=== PATIENT | male | born 1960 | race Caucasian/White ===

== ENCOUNTER → 2016-08-09 | Outpatient (CLI) | payer OTHER, MEDICAID, SELFPAY | PROVIDERS: Visit Provider Nurse Practitioner Psychiatric/Mental Health | DX: F31.60 Bipolar disorder, current episode mixed, unspecified (principal); F43.10 Post-traumatic stress disorder, unspecified; R41.89 Other symptoms and signs involving cognitive functions and awareness | CPT/HCPCS: 90836; 99214 ==

== ENCOUNTER → 2016-08-10 | Outpatient (CLI) | payer MEDICAID, OTHER, SELFPAY | PROVIDERS: Family Provider Nurse Practitioner Psychiatric/Mental Health; PCP Nurse Practitioner Psychiatric/Mental Health; Visit Provider Nurse Practitioner Psychiatric/Mental Health | DX: Z51.81 Encounter for therapeutic drug level monitoring (principal) | CPT/HCPCS: 36415; 80053; 80178; 84439; 84443; 84481; 85025 ==

== ENCOUNTER → 2016-09-20 | Outpatient (CLI) | payer OTHER, MEDICAID, SELFPAY | PROVIDERS: Visit Provider Nurse Practitioner Psychiatric/Mental Health | DX: F31.60 Bipolar disorder, current episode mixed, unspecified (principal); F43.10 Post-traumatic stress disorder, unspecified; R41.89 Other symptoms and signs involving cognitive functions and awareness | CPT/HCPCS: 90838; 99214 ==

== ENCOUNTER → 2016-10-04 | Outpatient (CLI) | payer MEDICAID, OTHER, SELFPAY | PROVIDERS: Family Provider Nurse Practitioner Psychiatric/Mental Health; PCP Nurse Practitioner Psychiatric/Mental Health; Visit Provider Nurse Practitioner Psychiatric/Mental Health | DX: F31.60 Bipolar disorder, current episode mixed, unspecified (principal); F43.10 Post-traumatic stress disorder, unspecified; R41.89 Other symptoms and signs involving cognitive functions and awareness | CPT/HCPCS: 90838; 99214 ==

== ENCOUNTER → 2016-10-22 | Outpatient (CLI) | payer MEDICAID, OTHER, SELFPAY | PROVIDERS: Family Provider Nurse Practitioner Psychiatric/Mental Health; PCP Nurse Practitioner Psychiatric/Mental Health; Visit Provider Nurse Practitioner Psychiatric/Mental Health | DX: F31.60 Bipolar disorder, current episode mixed, unspecified (principal); F43.10 Post-traumatic stress disorder, unspecified; R41.89 Other symptoms and signs involving cognitive functions and awareness | CPT/HCPCS: 90838; 99214 ==

== ENCOUNTER → 2016-12-03 | Outpatient (CLI) | payer MEDICAID, OTHER, SELFPAY | PROVIDERS: Family Provider Nurse Practitioner Psychiatric/Mental Health; PCP Nurse Practitioner Psychiatric/Mental Health; Visit Provider Nurse Practitioner Psychiatric/Mental Health | DX: F31.60 Bipolar disorder, current episode mixed, unspecified (principal); F43.10 Post-traumatic stress disorder, unspecified; R41.89 Other symptoms and signs involving cognitive functions and awareness | CPT/HCPCS: 90838; 99214 ==

== ENCOUNTER → 2017-01-13 | Outpatient (CLI) | payer MEDICAID, OTHER, SELFPAY | PROVIDERS: Family Provider Nurse Practitioner Psychiatric/Mental Health; PCP Nurse Practitioner Psychiatric/Mental Health; Visit Provider Nurse Practitioner Psychiatric/Mental Health | DX: F31.60 Bipolar disorder, current episode mixed, unspecified (principal); F43.10 Post-traumatic stress disorder, unspecified; R41.89 Other symptoms and signs involving cognitive functions and awareness | CPT/HCPCS: 90838; 99214 ==

== ENCOUNTER 2019-04-15 09:58 | Emergency (ER) | payer MEDICARE, SELFPAY ==
[2019-04-15 10:15] VITALS: BP 133/81; PULSE 67; RESP 16; TEMP 36.8; O2SAT 99; BMI 55.3
[2019-04-15 11:16] VITALS: BP 133/90; PULSE 62; RESP 17; O2SAT 99
--- NOTE | 2019-04-15 11:36 | ED.GIBLEED ---
HPI - GI Bleed General Chief complaint: GI Bleed Stated complaint: blood in stool/low abd pain today Time Seen by Provider: 04/15/19 10:31 Source: patient Mode of arrival: Ambulatory Limitations: no limitations History of Present Illness HPI Narrative: Patient is a 58-year-old male who presents with rectal bleeding. He states he had bowel movement this morning he flushed and then fell he immediately had ago again at that time he looked and it was bright red blood. He has not had any further episodes of bleeding he has no abdominal pain no nausea vomiting no dizziness or lightheadedness. Onset (ago): hour(s) Pain Consistency: now resolved Related Data Home Medications Medication Instructions Recorded Confirmed amlodipine [Norvasc] 10 mg PO DAILY #0 07/01/17 04/15/19 multivitamin 1 tab PO DAILY 03/04/18 02/24/19 levothyroxine 50 mcg PO DAILY 04/15/19 04/15/19 losartan 100 mg PO DAILY 04/15/19 04/15/19 omeprazole 20 mg PO DAILY 04/15/19 04/15/19 ropinirole 0.5 mg PO DAILY 04/15/19 04/15/19 Previous Rx's Medication Instructions Recorded methylphenidate HCl 36 mg 36 mg PO QAM #30 tab 02/24/19 tablet,extended release 24 hr lithium carbonate 300 mg capsule 900 mg PO BEDTIME #180 cap 03/22/19 alprazolam 0.5 mg tablet 0.5 mg PO BIDP PRN #30 tab 04/15/19 Allergies Allergy/AdvReac Type Severity Reaction Status Date / Time atenolol [From TENORMIN] AdvReac Unknown psychosis Unverified 12/23/18 09:52 Review of Systems Review of Systems Narrative: GENERAL: Denies chills, fatigue, malaise, fever, sweats, travel HEENT: Denies sinus pain, ear pain, sore throat, difficulty swallowing, neck pain RESPIRATORY: Denies dyspnea, cough, wheezing, hemoptysis, sputum. CARDIOVASCULAR: Denies chest pain, palpitations, orthopnea, edema GASTROINTESTINAL: See HPI : Denies dysuria, frequency, incontinence, hematuria, urinary retention, flank pain. MUSCULOSKELETAL: Denies weakness, joint pain, or bony pain SKIN: No rash, no erythema, no pruritus NEUROLOGIC: Denies weakness, dizziness, headache, numbness, change in speech, confusion PSYCHIATRIC: No concerning psychosocial issues. 12 point review of systems is negative except for those stated above and HPI [facility] Medical History ADHD, hyperactive-impulsive type (Acute) Bipolar 1 disorder, mixed (Acute) Cognitive impairment (Acute) Gastroesophageal reflux disease with hiatal hernia (Acute) Medication side effects (Acute) Nightmares associated with chronic post-traumatic stress disorder (Acute) PTSD (post-traumatic stress disorder) (Acute) Social History Smoking Status: Former smoker Social History Smoking Status: Former smoker Exam Initial Vital Signs Initial Vital Signs: Vital Signs Temperature 98.3 F 04/15/19 10:15 Pulse Rate 67 04/15/19 10:15 Respiratory Rate 16 04/15/19 10:15 Blood Pressure 133/81 04/15/19 10:15 Pulse Oximetry 99 04/15/19 10:15 GENERAL: Well-appearing, well-nourished and in no acute distress. HEENT: Head atraumatic,EOMI, pupils reactive, face symmetric, moist mucous membranes CARDIOVASCULAR: Regular rate and rhythm without murmurs, rubs or gallops. RESPIRATORY: Breath sounds equal bilaterally, no wheezes rales or rhonchi. ABDOMEN: Soft, nontender. Normoactive bowel sounds all 4 quadrants. No guarding or rebound. RECTAL: Trace Hemoccult-positive no gross blood no hemorrhoids nontender EXTREMITIES: Normal range of motion, no clubbing or edema. Neurovascularly intact NEUROLOGICAL: Alert and oriented x4.Normal gait and speech. Cranial nerves II through XII grossly intact. SKIN: Warm, dry, no laceration, no petechiae, no rashes or lesions. Course Orders Ordered: ED Orders 04/15/19 11:45 Complete Blood Count AUTO DIFF Stat Comprehensive Metabolic Panel Stat Lactate (Lactic Acid) Stat Lipase Stat Partial Thromboplastin Time Stat Prothrombin Time INR Stat Type and Screen Stat Vital Signs Vital signs: Vital Signs - 8 hr 04/15/19 11:16 04/15/19 12:46 04/15/19 12:56 Temperature 97.4 F L Pulse Rate 62 69 62 Respiratory Rate 17 17 16 Blood Pressure 141/97 H Blood Pressure [Left Arm] 133/90 141/97 H Pulse Oximetry 99 100 100 MDM - GI Bleed Lab Data Attestation: I reviewed the patient's lab results. Result diagrams: 04/15/19 11:45 04/15/19 11:45 Labs: Lab Results 04/15/19 04/15/19 04/15/19 Range/Units 11:45 11:45 11:45 WBC 15.7 H (4.5-11.0) X10^3/uL RBC 4.82 (4.5-5.9) X10^6/uL Hgb 14.6 (13.5-17.5) g/dL Hct 43.2 (41-53) % MCV 89.5 (80-100) fL MCH 30.3 (26-34) PG MCHC 33.8 (30-36) % RDW 13.3 (11.6-14.8) % Plt Count 242 (150-400) X10^3/uL Neut % (Auto) 47.2 L (50-75) % Lymph % (Auto) 47.7 H (25-40) % [place] % (Auto) 4.2 (3-14) % Eos % (Auto) 0.4 L (2-4) % Baso % (Auto) 0.5 (0-2) % Neut # (Auto) 7400 H (3239-8225) /uL Lymph # (Auto) 7500 H (9799-4454) /uL [place] # (Auto) 700 (0-900) /uL Eos # (Auto) 100 (0-450) /uL Baso # (Auto) 100 (0-100) /uL PT 10.8 (10.1-12.7) SECONDS INR 0.9 (0.9-1.3) APTT 33 (26.4-36.2) SECONDS Sodium 141 (137-145) mmol/L Potassium 5.1 (3.4-5.1) mmol/L Chloride 106 (98-107) mmol/L Carbon Dioxide 26 (22-32) mmol/L BUN 15 (9-20) mg/dL Creatinine 0.90 (0.66-1.25) mg/dL Estimated GFR > 60.0 (>60) mL/min BUN/Creatinine Ratio 16.7 (6-22) Glucose 95 (70-100) mg/dL Lactate (0.7-2.1) mmol/L Calcium 9.2 (8.4-10.2) mg/dL Total Bilirubin 0.5 (0.2-1.3) mg/dL AST 39 (17-59) IU/L ALT 47 (21-72) IU/L Alkaline Phosphatase 86 (38-126) U/L Total Protein 7.6 (6.3-8.2) g/dL Albumin 4.4 (3.5-5.0) g/dL Globulin 3.2 (1.7-4.1) g/dL Albumin/Globulin Ratio 1.4 (1.0-2.8) Lipase 110 (23-300) U/L Blood Type Antibody Screen 04/15/19 04/15/19 Range/Units 11:45 11:45 WBC (4.5-11.0) X10^3/uL RBC (4.5-5.9) X10^6/uL Hgb (13.5-17.5) g/dL Hct (41-53) % MCV (80-100) fL MCH (26-34) PG MCHC (30-36) % RDW (11.6-14.8) % Plt Count (150-400) X10^3/uL Neut % (Auto) (50-75) % Lymph % (Auto) (25-40) % [place] % (Auto) (3-14) % Eos % (Auto) (2-4) % Baso % (Auto) (0-2) % Neut # (Auto) (9583-1149) /uL Lymph # (Auto) (6928-5741) /uL [place] # (Auto) (0-900) /uL Eos # (Auto) (0-450) /uL Baso # (Auto) (0-100) /uL PT (10.1-12.7) SECONDS INR (0.9-1.3) APTT (26.4-36.2) SECONDS Sodium (137-145) mmol/L Potassium (3.4-5.1) mmol/L Chloride (98-107) mmol/L Carbon Dioxide (22-32) mmol/L BUN (9-20) mg/dL Creatinine (0.66-1.25) mg/dL Estimated GFR (>60) mL/min BUN/Creatinine Ratio (6-22) Glucose (70-100) mg/dL Lactate 1.3 (0.7-2.1) mmol/L Calcium (8.4-10.2) mg/dL Total Bilirubin (0.2-1.3) mg/dL AST (17-59) IU/L ALT (21-72) IU/L Alkaline Phosphatase (38-126) U/L Total Protein (6.3-8.2) g/dL Albumin (3.5-5.0) g/dL Globulin (1.7-4.1) g/dL Albumin/Globulin Ratio (1.0-2.8) Lipase (23-300) U/L Blood Type O Positive Antibody Screen Negative MDM Narrative Medical decision making narrative: Patient is hemodynamically stable hemoglobin hematocrit stable. No further episodes of GI bleeding. Recommend outpatient colonoscopy at this time. I discussed all findings with the patient and spouse, Education has been performed regarding treatment plan, diagnosis, warning signs and symptoms and all concerns have been addressed. Verbally agree with and understood all of the above. Discharge Plan Departure Patient Disposition: Home Clinical Impression: Acute GI bleeding Discharge Date/Time: 04/15/19 12:56 Instructions: Gastrointestinal Bleeding Activity Restrictions/Additional Instructions: *You have been diagnosed with GI bleed *What to do: Continue to monitor for further or more persistent rectal bleeding. You do need a colonoscopy. *Continue to take medications as directed *Follow up with your primary care provider in 2-3 days *Return to ER if you should have more frequent episodes of bleeding, dizziness lightheadedness abdominal pain or any new, worsening or concerning symptoms Prescriptions: No Action multivitamin tablet 1 tab PO DAILY RF: 0 methylphenidate HCl 36 mg tablet extended release 24hr 36 mg PO QAM Qty: 30 RF: 0 amlodipine [Norvasc] 10 MG tablet 10 mg PO DAILY Qty: 0 RF: 0 lithium carbonate 300 mg capsule 900 mg PO BEDTIME Qty: 180 RF: 1 alprazolam [Xanax] 0.5 mg tablet 0.5 mg PO BIDP PRN (Reason: anxiety) Qty: 30 RF: 0 levothyroxine 50 mcg tablet 50 mcg PO DAILY RF: 0 ropinirole 0.5 mg tablet 0.5 mg PO DAILY RF: 0 omeprazole 20 mg capsule,delayed release(DR/EC) 20 mg PO DAILY RF: 0 losartan 100 mg tablet 100 mg PO DAILY RF: 0 Referrals: Lina Hutton DO [Primary Care Provider] -
[2019-04-15 11:58] LABS: Add Manual Diff / Slide Review NO; Basophils Absolute Auto 100 /uL (0-100); Basophils Percent Auto 0.5 % (0-2); Eosinophils Absolute Auto 100 /uL (0-450); Eosinophils Percent Auto 0.4 % (2-4); Hematocrit 43.2 % (41-53); Hemoglobin 14.6 g/dL (13.5-17.5); Lymphocytes Absolute Auto 7500 /uL (1100-4500); Lymphocytes Percent Auto 47.7 % (25-40); Mean Corpuscular HGB Conc 33.8 % (30-36); Mean Corpuscular Hemoglobin 30.3 PG (26-34); Mean Corpuscular Volume 89.5 fL (80-100); Monocytes Absolute Auto 700 /uL (0-900); Monocytes Percent Auto 4.2 % (3-14); Neutrophils Absolute Auto 7400 /uL (1500-7000); Neutrophils Percent Auto 47.2 % (50-75); Platelet Count 242 X10^3/uL (150-400); Red Blood Cell Count 4.82 X10^6/uL (4.5-5.9); Red Cell Distribution Width 13.3 % (11.6-14.8); White Blood Cell Count 15.7 X10^3/uL (4.5-11.0)
[2019-04-15 12:05] LABS: INR 0.9 (0.9-1.3); Prothrombin Time 10.8 SECONDS (10.1-12.7)
[2019-04-15 12:08] LABS: PTT Partial Thromboplastin Tim 33 SECONDS (26.4-36.2)
[2019-04-15 12:09] LABS: Alanine Aminotransferase 47 IU/L (21-72); Albumin 4.4 g/dL (3.5-5.0); Albumin Globulin Ratio 1.4 (1.0-2.8); Alkaline Phosphatase 86 U/L (38-126); Aspartate Aminotransferase 39 IU/L (17-59); BUN Creatinine Ratio 16.7 (6-22); Bilirubin Total 0.5 mg/dL (0.2-1.3); Blood Urea Nitrogen 15 mg/dL (9-20); Calcium 9.2 mg/dL (8.4-10.2); Carbon Dioxide 26 mmol/L (22-32); Chloride 106 mmol/L (98-107); Estimated Glomerular Filt Rate > 60.0 mL/min (>60); Globulin 3.2 g/dL (1.7-4.1); Glucose 95 mg/dL (70-100); HEMOLYSIS < 15 (0-50); Lactate (Lactic Acid) 1.3 mmol/L (0.7-2.1); Lipase 110 U/L (23-300); Potassium 5.1 mmol/L (3.4-5.1); Sodium 141 mmol/L (137-145); Total Protein 7.6 g/dL (6.3-8.2)
[2019-04-15 12:46] VITALS: BP 141/97; PULSE 69; RESP 17; O2SAT 100
--- NOTE | 2019-04-15 12:51 | PC.NURSE ---
Moderate amount of bright red blood filling toilet bowl with stool this morning. Mild abdominal pain.
[2019-04-15 12:56] VITALS: BP 141/97; PULSE 62; RESP 16; TEMP 36.3; O2SAT 100
== END 2019-04-15 12:56 | disposition home or self-care (01) ==
PROVIDERS: Emergency Provider Emergency Medicine; Family Provider Nurse Practitioner Psychiatric/Mental Health; PCP Family Medicine
DX: K92.2 Gastrointestinal hemorrhage, unspecified (principal)
CPT/HCPCS: 36415; 80053; 83605; 83690; 85025; 85610; 85730; 86850; 86900; 86901; 99282; 99283

== ENCOUNTER 2019-04-30 08:47 | Day surgery (SDC) | payer MEDICARE, SELFPAY | END 2019-04-30 08:50 | disposition home or self-care (01) | PROVIDERS: Family Provider Nurse Practitioner Psychiatric/Mental Health; PCP Family Medicine; Visit Provider Surgery ==

== ENCOUNTER 2020-03-05 23:31 | Emergency (ER) | payer MEDICARE, SELFPAY ==
--- NOTE | 2020-03-05 23:48 | DI.CT.S_ITS ---
PROCEDURE: CT KIDNEY URETER BLADDER (KUB) INDICATIONS: right groin pain with radiation to back TECHNIQUE: Noncontrast 5 mm thick sections acquired from the diaphragms to the symphysis. 5 mm thick coronal and sagittal reformats were then performed. For radiation dose reduction, the following was used: automated exposure control, adjustment of mA and/or kV according to patient size. COMPARISON: [facility], CT, CT CHEST ABD PEL W CON, 03/06/2020, 1:46. FINDINGS: Image quality: Excellent. Lung bases: Lung bases are clear. Heart size is normal. There is a small hiatal hernia. Urinary system: Both kidneys are normal in size. No kidney stones. No hydronephrosis or perinephric fat stranding. Both ureters appear non-dilated throughout their expected courses. Bladder wall thickness is normal; no calcified bladder stones. Prostate is enlarged. Irregular bladder base at midline suggesting mass. Other solid organs: Liver is normal in size. Gallbladder is semi contracted and contains a calcified stone. Pancreas is normal in contours. Spleen is normal in size. No adrenal nodules. Peritoneum and bowel: Unenhanced bowel loops demonstrate normal wall thickness and caliber. There are scattered colonic diverticula. No CT findings to suggest acute diverticulitis. No free fluid or air. Nodes and vessels: There is a 1.9 cm lymph node just below the aortic bifurcation. There is bilateral iliac lymphadenopathy. For example, there is a 1.7 cm right common iliac lymph node. A 2.6 x 3.0 cm lymph node is seen at the right iliac bifurcation. A 2.8 x 2.9 cm right external iliac lymph node is identified. On the left side, there is a 1.5 x 2.3 cm left external iliac lymph node. Enlarged internal iliac lymph nodes are seen bilaterally, measuring 1.8 cm on the right side and 1.4 x 2.3 cm on the left. There is stranding along the pelvic sidewall adjacent to the lymph nodes. Aorta and inferior vena cava are normal in caliber. Abdominal wall: No ventral hernias. Pelvis: No free pelvic fluid. No inguinal hernias or adenopathy. Bones: No suspicious bony lesions. No vertebral body compression fractures. IMPRESSION: 1. There is extensive pelvic lymphadenopathy. The main diagnostic considerations include metastatic disease versus lymphoma. Infectious or inflammatory etiologies are also in the differential diagnosis. 2. Irregular bladder base at midline. Differential diagnosis include uroepithelial neoplasm versus enlarged prostate protruding into the urinary bladder. Recommend urology consultation. 3. Enlarged prostate. 4. Small hiatal hernia. 5. No urinary stones or hydronephrosis. 6. Normal appendix. 7. Diverticulosis without acute diverticulitis. Dictated by: Christy Coyne M.D. on 03/06/2020 at 8:01 Approved by: Christy Coyne M.D. on 03/06/2020 at 8:13
[2020-03-05 23:55] VITALS: BP 138/100; PULSE 117; RESP 16; TEMP 37.7; O2SAT 99; BMI 24.4
[2020-03-05 23:58] LABS: Add Manual Diff / Slide Review NO; Basophils Absolute Auto 100 /uL (0-100); Basophils Percent Auto 0.5 % (0-2); Eosinophils Absolute Auto 100 /uL (0-450); Eosinophils Percent Auto 0.6 % (2-4); Hematocrit 43.6 % (41-53); Hemoglobin 14.6 g/dL (13.5-17.5); Lymphocytes Absolute Auto 7900 /uL (1100-4500); Lymphocytes Percent Auto 38.5 % (25-40); Mean Corpuscular HGB Conc 33.5 % (30-36); Mean Corpuscular Hemoglobin 29.5 PG (26-34); Mean Corpuscular Volume 87.9 fL (80-100); Monocytes Absolute Auto 1400 /uL (0-900); Monocytes Percent Auto 6.7 % (3-14); Neutrophils Absolute Auto 11100 /uL (1500-7000); Neutrophils Percent Auto 53.7 % (50-75); Platelet Count 250 X10^3/uL (150-400); Red Blood Cell Count 4.96 X10^6/uL (4.5-5.9); Red Cell Distribution Width 13.6 % (11.6-14.8); White Blood Cell Count 20.7 X10^3/uL (4.5-11.0)
[2020-03-06] VITALS (12 sets, daily range): BP systolic 101–134; BP diastolic 61–79; PULSE 77–107; RESP 16–27; O2SAT 94–100
[2020-03-06 00:11] LABS: BUN Creatinine Ratio 18.5 (6-22); Blood Urea Nitrogen 17 mg/dL (9-20); Calcium 9.4 mg/dL (8.4-10.2); Carbon Dioxide 22 mmol/L (22-32); Chloride 105 mmol/L (98-107); Estimated Glomerular Filt Rate > 60.0 mL/min (>60); Glucose 135 mg/dL (80-110); HEMOLYSIS 15 (0-50); Potassium 4.2 mmol/L (3.4-5.1); Sodium 136 mmol/L (137-145)
[2020-03-06] MEDS: KETOROLAC 60 MG/2 ML VIAL 15 MG IV (00:24)
[2020-03-06] MEDS: SODIUM CHLORIDE 0.9% 1,000 ML 1000 ML IV (00:24)
--- NOTE | 2020-03-06 01:22 | ED_ITS ---
HPI - Male Genitourinary General Chief complaint: Urogenital-Male Stated complaint: right testicle pain Time Seen by Provider: 03/05/20 23:31 Source: patient Mode of arrival: Ambulatory Limitations: no limitations History of Present Illness HPI Narrative: 59M non smoker with history of HTN presents with the chief co mplaint of 24 hours of persistent, severe RLQ pain with radiation into his testicle. He states it started suddenly just after intercourse. He has worsening pain with urination. He denies fever or chills or other systemic findings such as dizziness, N/V. He denies obvious provocation or palliation and admits to some radiation of pain around his back. He denies any history of the same. He denies penile discharge. Related Data Home Medications Medication Instructions Recorded Confirmed amlodipine [Norvasc] 10 mg PO DAILY #0 07/01/17 09/01/19 multivitamin 1 tab PO DAILY 03/04/18 09/01/19 levothyroxine 50 mcg PO DAILY 04/15/19 09/01/19 losartan 100 mg PO DAILY 04/15/19 09/01/19 omeprazole 20 mg PO DAILY 04/15/19 09/01/19 Previous Rx's Medication Instructions Recorded lithium carbonate 300 mg capsule 900 mg PO BEDTIME #180 cap 06/30/19 alprazolam 0.5 mg tablet 0.5 mg PO BID PRN 30 Days #30 tab 09/20/19 ketorolac 10 mg PO Q6H PRN #14 tab 03/06/20 Allergies Allergy/AdvReac Type Severity Reaction Status Date / Time atenolol [From TENORMIN] AdvReac Unknown psychosis Verified 03/06/20 00:00 aerosol sprays Allergy Intermediate states Uncoded 03/06/20 00:00 that his lungs close up and he can't breathe perfume Allergy Intermediate states Uncoded 03/06/20 00:00 that his lungs close up and he can't breathe puppy breath Allergy Intermediate states Uncoded 03/06/20 00:00 that his lungs close up and he can't breathe Review of Systems Constitutional Constitutional: Denies chills, Denies fatigue, Denies fever(s), Denies frequent falls, Denies lethargy and Denies weakness Eyes Eyes: Denies change in vision, Denies eye discharge, Denies irritation and Denies loss of vision ENT Ears, Nose, Mouth, and Throat: Denies change in voice, Denies dizziness, Denies neck pain, Denies sore throat and Denies throat swelling Cardiovascular Cardiovascular: Denies chest pain, Denies irregular heart rhythm, Denies lightheadedness, Denies palpitations, Denies dyspnea, Denies dyspnea on exertion and Denies orthopnea Respiratory Respiratory: Denies cough, Denies dyspnea, Denies dyspnea on exertion and Denies wheezing Gastrointestinal Gastrointestinal: Reports abdominal pain, Denies change in bowel habits, Denies diarrhea, Denies nausea and Denies vomiting Musculoskeletal Musculoskeletal: Denies neck pain and Denies numbness Integumentary/Breasts Skin/Breast: Denies pruritus, Denies erythema, Denies rash and Denies wounds Neurologic Neurologic: Denies behavioral changes, Denies confusion, Denies dizziness, Denies frequent falls, Denies loss of vision, Denies numbness and Denies weakness Psychiatric Psychiatric: Denies anxiety, Denies behavioral changes, Denies confusion, Denies depression, Denies homicidal ideation and Denies suicidal ideation Endocrine Endocrine: Denies fatigue, Denies flushing and Denies palpitations Hematologic/Lymphatic Hematologic/Lymphatic: Denies easy bruising Allergic/Immunologic Allergic/Immunologic: Denies urticaria, Denies throat swelling and Denies wheezing Patient History Medical History Acute GI bleeding (Inactive) ADHD, hyperactive-impulsive type (Acute) Bipolar 1 disorder, mixed (Acute) Cognitive impairment (Acute) Gastroesophageal reflux disease with hiatal hernia (Acute) HTN (hypertension) (Acute) Internal hemorrhoids (Acute) Medication side effects (Acute) Nightmares associated with chronic post-traumatic stress disorder (Acute) PTSD (post-traumatic stress disorder) (Acute) Family History Father Hypertension Social History marital status: household members: spouse and children occupational status: disabled Smoking Status: Former smoker alcohol intake: never substance use type: does not use Smoking Status: Former smoker alcohol intake frequency: 0-2 drinks per day Substance Use Type: does not use Exam Narrative Exam Narrative: GENERAL: [59] year old patient appears stated age. Well- nourished, well-developed patient, in mild distress. HEAD: Atraumatic. Normocephalic. EYES: Pupils equal round and reactive. Extraocular motions intact. No scleral icterus. No injection or drainage. ENT: Nose without bleeding, purulent drainage. Throat without erythema, tonsillar hypertrophy or exudate. Airway patent. NECK: Trachea midline. Non tender CARDIOVASCULAR: Regular rate and rhythm without murmurs, gallops, or rubs. RESPIRATORY: Clear to auscultation. Breath sounds equal bilaterally. No wheezes, rales, or rhonchi. GASTROINTESTINAL: Abdomen soft, tender in RLQ, nondistended. : Examined while standing. NO evidence of hernia. No pain in testicles, no swelling, redness, or other abnormality EXTREMITIES: No edema or joint tenderness. BACK: Nontender without deformity or crepitance. No flank tenderness. NEURO: AOx3. SKIN: No rash or erythema of visible areas Initial Vital Signs Initial Vital Signs: Vital Signs Temperature 99.8 F H 03/05/20 23:55 Pulse Rate 117 H 03/05/20 23:55 Respiratory Rate 16 03/05/20 23:55 Blood Pressure 138/100 H 03/05/20 23:55 Pulse Oximetry 99 03/05/20 23:55 Course Orders Ordered: ED Orders 03/05/20 23:48 CT kidney ureter bladder (KUB) Stat 03/05/20 23:50 Basic Metabolic Panel Stat Complete Blood Count AUTO DIFF Stat 03/06/20 00:00 Prostate Specific Antigen Stat 03/06/20 01:27 CT chest abd pel w con Stat Discontinued Medications Hydrocodone Bitart/Acetaminophen (Vicodin 5/325 Prepack) 1 bottle MISC SEEINSTR ONE Stop: 03/06/20 03:47 Last Admin: 03/06/20 04:08 Dose: 1 bottle Documented by: SYLWIA Sodium Chloride (Normal Saline 0.9%) 1,000 mls @ 1,000 mls/hr IV BOLUS ONE Stop: 03/06/20 00:46 Last Infusion: 03/06/20 02:23 Dose: 0 mls/hr Documented by: Admin: 03/06/20 00:24 Dose: 1,000 mls/hr Documented by: ELOINA Ketorolac Tromethamine (Toradol) 15 mg IV NOW ONE Stop: 03/05/20 23:48 Last Admin: 03/06/20 00:24 Dose: 15 mg Documented by: ELOINA Vital Signs Vital signs: Vital Signs - 8 hr 03/05/20 23:55 03/06/20 00:13 03/06/20 00:58 Temperature 99.8 F H Pulse Rate 117 H 87 Pulse Rate [Orthostatic Lying] 101 H Pulse Rate [Orthostatic Sitting] 107 H Pulse Rate [Orthostatic Standing] 87 Respiratory Rate 16 27 H Blood Pressure 138/100 H Blood Pressure [Orthostatic Lying] 119/69 Blood Pressure [Orthostatic Sitting] 131/76 Blood Pressure [Orthostatic Standing] 101/64 Pulse Oximetry 99 95 03/06/20 01:00 03/06/20 01:30 03/06/20 02:15 Temperature Pulse Rate 89 81 98 H Pulse Rate [Orthostatic Lying] Pulse Rate [Orthostatic Sitting] Pulse Rate [Orthostatic Standing] Respiratory Rate 23 22 Blood Pressure 131/76 134/79 Blood Pressure [Orthostatic Lying] Blood Pressure [Orthostatic Sitting] Blood Pressure [Orthostatic Standing] Pulse Oximetry 96 94 97 03/06/20 02:30 03/06/20 02:45 03/06/20 03:00 Temperature Pulse Rate 88 85 81 Pulse Rate [Orthostatic Lying] Pulse Rate [Orthostatic Sitting] Pulse Rate [Orthostatic Standing] Respiratory Rate Blood Pressure 119/66 111/65 112/61 Blood Pressure [Orthostatic Lying] Blood Pressure [Orthostatic Sitting] Blood Pressure [Orthostatic Standing] Pulse Oximetry 95 96 96 03/06/20 03:15 03/06/20 03:30 03/06/20 03:45 Temperature Pulse Rate 81 77 85 Pulse Rate [Orthostatic Lying] Pulse Rate [Orthostatic Sitting] Pulse Rate [Orthostatic Standing] Respiratory Rate Blood Pressure 120/63 105/65 127/75 Blood Pressure [Orthostatic Lying] Blood Pressure [Orthostatic Sitting] Blood Pressure [Orthostatic Standing] Pulse Oximetry 96 95 97 03/06/20 04:00 Temperature Pulse Rate 78 Pulse Rate [Orthostatic Lying] Pulse Rate [Orthostatic Sitting] Pulse Rate [Orthostatic Standing] Respiratory Rate Blood Pressure 123/66 Blood Pressure [Orthostatic Lying] Blood Pressure [Orthostatic Sitting] Blood Pressure [Orthostatic Standing] Pulse Oximetry 96 MDM - Male Genitourinary Lab Data Result diagrams: 03/05/20 23:50 03/05/20 23:50 Labs: Lab Results 03/05/20 03/05/20 03/06/20 Range/Units 23:50 23:50 00:00 WBC 20.7 H (4.5-11.0) X10^3/uL RBC 4.96 (4.5-5.9) X10^6/uL Hgb 14.6 (13.5-17.5) g/dL Hct 43.6 (41-53) % MCV 87.9 (80-100) fL MCH 29.5 (26-34) PG MCHC 33.5 (30-36) % RDW 13.6 (11.6-14.8) % Plt Count 250 (150-400) X10^3/uL Neut % (Auto) 53.7 (50-75) % Lymph % (Auto) 38.5 (25-40) % [place] % (Auto) 6.7 (3-14) % Eos % (Auto) 0.6 L (2-4) % Baso % (Auto) 0.5 (0-2) % Neut # (Auto) 92793 H (8051-9568) /uL Lymph # (Auto) 7900 H (9783-9414) /uL [place] # (Auto) 1400 H (0-900) /uL Eos # (Auto) 100 (0-450) /uL Baso # (Auto) 100 (0-100) /uL Sodium 136 L (137-145) mmol/L Potassium 4.2 (3.4-5.1) mmol/L Chloride 105 (98-107) mmol/L Carbon Dioxide 22 (22-32) mmol/L BUN 17 (9-20) mg/dL Creatinine 0.92 (0.66-1.25) mg/dL Estimated GFR > 60.0 (>60) mL/min BUN/Creatinine Ratio 18.5 (6-22) Glucose 135 H (80-110) mg/dL Calcium 9.4 (8.4-10.2) mg/dL Prostate Specific Ag 91.2 H (0.10-4.00) ng/mL Urine Dip Bedside Urine Glucose Negative Bedside Urine Bilirubin - Negative Bedside Urine Ketone - Negative Urine Specific Brandt 1.010 Bedside Urine Occult Blood - Negative Bedside Urine pH 7.0 Bedside Urine Protein - Negative Bedside Urine Urobilinogen - Negative Bedside Urine Nitrite - Negative Bedside Urine Leukocytes - Negative Esterase Imaging Data CT scan - chest: Radiologist's Impression: 1 cm left adrenal nodule and terminate by CT numbers on postcontrast study but suggestive of adenoma on prior noncontrast study. Slight thickening of the right adrenal nodule. Lobulated mildly enlarged prostate with mildly distended urinary bladder possibly related to bladder outlet obstruction. Mild diverticulosis. Lower bilateral retroperitoneal stranding with lymphadenopathy including distal jacoby aortic and common external and internal iliac chains, finding suggestive of malignant process. Discharge Plan Departure Patient Disposition: Home Clinical Impression: Acute pelvic pain, Lymphadenopathy, abdominal Discharge Date/Time: 03/06/20 04:21 Instructions: DI for Pelvic Pain Activity Restrictions/Additional Instructions: *You have been diagnosed with [pelvic pain, likely due to enlarged lymph nodes which may be metastatic (cancerous). Close follow up is very important] *What to do: *Take medications as directed: Prescription was electronically sent to [facility] in [place] at your request. *Establishing care with a primary physician will be very important as will contacting medical oncology and urology. All of the contacts have been included. *Return to ER if you should have any new, worsening or concerning symptoms, such as [ ] Prescriptions: New ketorolac 10 mg tablet 10 mg PO Q6H PRN (Reason: pain) Qty: 14 RF: 0 No Action multivitamin tablet 1 tab PO DAILY RF: 0 lithium carbonate 300 mg capsule 900 mg PO BEDTIME Qty: 180 RF: 1 amlodipine [Norvasc] 10 MG tablet 10 mg PO DAILY Qty: 0 RF: 0 alprazolam [Xanax] 0.5 mg tablet 0.5 mg PO BID PRN (Reason: anxiety) 30 Days Qty: 30 RF: 1 levothyroxine 50 mcg tablet 50 mcg PO DAILY RF: 0 omeprazole 20 mg capsule,delayed release(DR/EC) 20 mg PO DAILY RF: 0 losartan 100 mg tablet 100 mg PO DAILY RF: 0 Referrals: [facility] [Outside] Ayesha Ríos MD [Physician] - Lina Hutton DO [Primary Care Provider] - Miguel Dalton MD [Physician] -
--- NOTE | 2020-03-06 01:27 | DI.CT.S_ITS ---
PROCEDURE: CT CHEST ABD PEL W CON INDICATIONS: severe pain, leukocytosis, lymphadenopathy TECHNIQUE: After the administration of oral and intravenous contrast, 5 mm thick sections acquired from the lung apices to the symphysis. 5 mm coronal and sagittal reformats were performed, with additional 7 mm coronal MIP reformats through the lungs. For radiation dose reduction, the following was used: automated exposure control, adjustment of mA and/or kV according to patient size. COMPARISON: None. FINDINGS: Image quality: Excellent. CHEST: Lungs and pleura: No acute airspace opacities. No pleural effusions or pneumothorax. Central and peripheral airways appear patent and normal in caliber. Mediastinum: Heart size is normal. No pericardial effusion. No mediastinal or hilar adenopathy by size criteria. Thoracic aorta and central pulmonary arteries are normal in size. Esophagus is normal in caliber. Very small hiatal hernia. Chest wall: No axillary or supraclavicular adenopathy by size criteria. Thyroid gland is normal . ABDOMEN: Solid organs: Liver is normal in size and enhancement. Gallbladder contains a punctate calcification dependently layering near the neck. No suspicious wall thickening . Biliary system is non dilated. Pancreas enhances normally. Spleen is normal in size and enhancement. There is a small ill-defined adrenal nodule measuring about 1.1 x 1.5 cm on the lateral limb of the left gland. Kidneys demonstrate normal size and enhancement, without hydronephrosis. Peritoneum and bowel: Bowel loops demonstrate normal wall thickness and caliber. No free fluid or air. Normal appendix. Nodes and vessels: No retroperitoneal or mesenteric adenopathy by size criteria. There is a mildly prominent left lower periaortic lymph node (2/87). Aorta and inferior vena cava are normal in size. Miscellaneous: No ventral hernias. PELVIS: Genitourinary: Enhancing irregular mass along the posterior wall of the urinary bladder measuring roughly 1.4 x 2.1 cm. There is no ureteral obstruction. The prostate gland is mildly enlarged measuring 5.1 by 3.7 by 4.3 cm. Miscellaneous: There is inflammatory fascial thickening and bulky lymphadenopathy beginning at the aortic bifurcation and extending caudal along both common, internal, and external iliac chains. 1 of the largest lymph nodes is in the right external iliac chain and measures about 2.6 cm in short axis. Small, 8 mm lymph node is present in the right perirectal fat. No inguinal adenopathy. Bones: No suspicious bony lesions. No vertebral body compression fractures. IMPRESSION: 1. Iliac chain adenopathy bilaterally and mild overlying inflammatory changes of the lower retroperitoneum. Findings suggestive of metastatic disease versus lymphoma. 2. Sessile, enhancing bladder mass along the posterior wall. This may be the source of adenopathy. Urology consult is recommended. 3. Cholelithiasis. 4. Small left adrenal nodule, most likely an adenoma based on the noncontrast scan performed earlier the same day. Metastatic disease is felt less likely. 5. No evidence of metastatic disease in the chest. 6. Findings discussed with Dr. Rivera in the emergency room at 08:43. Dictated by: Gem Baker M.D. on 03/06/2020 at 8:29 Approved by: Gem Baker M.D. on 03/06/2020 at 8:46
[2020-03-06] MEDS: HYDROCODONE/ACET 5/325 PREPACK 1 BOTTLE MISC (04:08)
[2020-03-06 05:33] LABS: Prostate Specific Antigen 91.2 ng/mL (0.10-4.00)
--- NOTE | 2020-03-06 17:27 | PC.NURSE ---
pt called, insurance doesn't cover toradol, pt request something else. dr mina ordered meloxicam 7.5mg 1-2 tabs daily. #30 tabs total.
== END 2020-03-06 04:21 | disposition home or self-care (01) ==
PROVIDERS: Emergency Provider Emergency Medicine; Family Provider Nurse Practitioner Psychiatric/Mental Health; PCP Family Medicine
DX: R10.2 Pelvic and perineal pain (principal); R59.0 Localized enlarged lymph nodes; N40.0 Benign prostatic hyperplasia without lower urinary tract symptoms; K57.90 Diverticulosis of intestine, part unspecified, without perforation or abscess without bleeding; R10.31 Right lower quadrant pain
CPT/HCPCS: 36415; 71260; 74176; 74177; 80048; 81003; 84153; 85025; 93005; 96361; 96374; 99284; 99285; J1885; Q9967

== ENCOUNTER → 2020-03-25 13:34 | Outpatient (CLI) | payer MEDICARE, SELFPAY ==
[2020-03-27 11:45] LABS: COVID19 Sendout Not Detected (Not Detect)
== END ==
PROVIDERS: Family Provider Nurse Practitioner Psychiatric/Mental Health; PCP Family Medicine; Visit Provider Nurse Practitioner
DX: Z11.59 Encounter for screening for other viral diseases (principal)
CPT/HCPCS: 87635

== ENCOUNTER 2020-03-28 08:51 | Day surgery (SDC) | payer MEDICARE, SELFPAY ==
[2020-03-28] VITALS (9 sets, daily range): BP systolic 88–113; BP diastolic 55–73; PULSE 55–93; RESP 9–19; TEMP 36.1–36.7; O2SAT 89–99; BMI 24.4
--- NOTE | 2020-03-28 | PATH_ITS ---
[facility] Accession Number: [id number] . 01 Material submitted: . colon - POLYP AT 40CM . 01 Clinical history: . SDC . 02 Diagnosis: Colon, Polyp at 40 cm, Biopsy: Inflammatory polyp. Negative for dysplasia and malignancy. MRV 03/30/2020 1021 Local . 02 Electronically signed: . Leslie Montoya MD, Pathologist NPI- [id number] . 01 Gross description: . The specimen is received in formalin, labeled polyp at 40 cm and consists of a 0.5 x 0.4 x 0.3 cm rush-pink polyp, which is entirely submitted in cassette A1. ([id number]) /[facility] 03/29/2020 1801 Local . 02 Pathologist provided ICD-10: K63.5 . 02 CPT . 530134 Performed at: 01 [facility] [address] [facility], [place], [place] [id number] MD Zafar Wetzel MD Phone: [phone] Performed at: 02 [facility] [address] [place], [place] [id number] MD Leslie Montoya MD Phone: [phone]
[2020-03-28] MEDS: LACTATED RINGERS 1,000 ML 200 ML IV ×2 (09:47→13:00)
--- NOTE | 2020-03-28 11:11 | PM.PREOP ---
Pre-operative Note COVID-19 COVID-19 status: Negative Result date/Date tested (Pos, Neg/Pending): 03/25/20 Interval Note History & Physical reviewed/Exam performed by Physician: Yes Changes to H&P: No ASA Class (for procedural sedation): II
[2020-03-28] MEDS: fentaNYL 250 MCG/5 ML INJ IV (11:21)
[2020-03-28] MEDS: MIDAZOLAM 5 MG/5 ML VIAL IV (11:21)
--- NOTE | 2020-03-28 11:52 | PM.OP.ENDO ---
Operative Date/Time/Diagnoses Date of procedure: 03/28/20 Time of procedure: 11:52 Pre-op diagnosis: Screening exam Post-op diagnosis: same (Sigmoid diverticulosis. Multiple polyps.) Procedure & Clinicians Study performed: Colonoscopy with hot snare polypectomy Same procedure as scheduled: Yes Indications: Screening exam. This is his 1st colonoscopy. Surgeon: Richie Patel Procedure Notes SCOAP/Timeout: Perform Procedure in detail: The patient was placed in the left lateral decubitus position and underwent IV sedation directed by the surgeon consisting of fentanyl and Versed. Digital exam was remarkable for a very large hard prostate highly suggestive of cancer. The scope was inserted and advanced through the rectum into the sigmoid, descending, transverse, and ascending colon. There was a polyp at about 40 cm which was snared and completely removed. Patient was noted to have numerous sigmoid diverticuli. The cecum was reached identified by the ileocecal valve and the appendiceal opening. The terminal ileum was cannulated. The terminal ileum was normal in appearance. The scope was gradually brought out. One other small Polyp was found and cauterized. The scope ultimately was retroflexed in the rectum. The appearance was normal. The scope was removed and the patient tolerated the procedure well. The prep was very good. Scope withdrawal time: 10min(11 total) Sedation minutes: 28 Findings: diverticulosis, polyp (Forty cm from the anal verge) and other findings (Probable prostate cancer) Specimen(s): other (Polyp) Complications: none Post-procedure Recommendations: Colonscopy in 5 years Follow up: as needed Disposition: PACU
[2020-03-28] MEDS: ATROPINE 1 MG/10 ML SYRINGE IV (11:53)
== END 2020-03-28 13:45 | disposition home or self-care (01) ==
PROVIDERS: Family Provider Nurse Practitioner Psychiatric/Mental Health; PCP Family Medicine; Referring Provider Specialist; Visit Provider Specialist
PROC: 0DJD8ZZ Inspection of Lower Intestinal Tract, Via Natural or Artificial Opening Endoscopic (ICD-10-PCS; CPT 45378; principal; 2020-03-28 10:00)
DX: Z12.11 Encounter for screening for malignant neoplasm of colon (principal); I10 Essential (primary) hypertension; F31.9 Bipolar disorder, unspecified; K21.9 Gastro-esophageal reflux disease without esophagitis; K57.30 Diverticulosis of large intestine without perforation or abscess without bleeding; K51.40 Inflammatory polyps of colon without complications
CPT/HCPCS: 45385; 84153; 99152; 99153; J0461; J2250; J3010

== ENCOUNTER → 2020-05-04 09:50 | Outpatient (CLI) | payer MEDICARE, SELFPAY ==
--- NOTE | 2020-05-04 09:55 | DI.NM.S_ITS ---
PROCEDURE: NM BONE SCAN WHOLE BODY RADIOPHARMACEUTICAL: 20.1 mCi Tc-99m MDP IV. INDICATIONS: prostate cancer TECHNIQUE: Delayed whole-body scintigrams were obtained approximately 3-4 hours after intravenous injection of radiotracer. Anterior and posterior views were acquired from vertex to feet. Additional left and right oblique views of the thoracic cage and pelvis were obtained. COMPARISON: [facility], CR, SPINE LUMB 2 OR 3VW, 02/24/2015, 9:50. [facility], CT, CT CHEST ABD PEL W CON, 03/06/2020, 1:46. FINDINGS: No lesions are identified in skull, sternum, clavicles, scapulae, ribs, bony pelvis, and visualized shafts of the long bones. There is low level increased uptake in cervical, thoracic and lumbar spine with distribution indistinguishable from degenerative disc and facet disease; early metastasis to spine could be obscured by degenerative changes. There are foci of increased periarticular activity involving shoulders, sternoclavicular joints and hips, compatible with degenerative/arthritic changes. IMPRESSION: No scintigraphic findings to suggest osseous metastasis. Dictated by: Christy Coyne M.D. on 05/04/2020 at 14:11 Approved by: Christy Coyne M.D. on 05/04/2020 at 14:19
== END ==
PROVIDERS: Family Provider Nurse Practitioner Psychiatric/Mental Health; PCP Family Medicine; Referring Provider Specialist; Visit Provider Specialist
DX: C61 Malignant neoplasm of prostate (principal); Z79.899 Other long term (current) drug therapy
CPT/HCPCS: 78306; 96372; 96402; A9503; J0897; J9155

== ENCOUNTER → 2020-06-09 12:08 | Outpatient (CLI) | payer MEDICARE, SELFPAY | PROVIDERS: Family Provider Nurse Practitioner Psychiatric/Mental Health; PCP Family Medicine; Referring Provider Specialist; Visit Provider Specialist | DX: M85.852 Other specified disorders of bone density and structure, left thigh (principal); C61 Malignant neoplasm of prostate | CPT/HCPCS: 77081 ==

== ENCOUNTER 2020-07-08 13:57 | Emergency (ER) | payer MEDICARE, SELFPAY ==
[2020-07-08] VITALS (7 sets, daily range): BP systolic 139–179; BP diastolic 75–92; PULSE 70–85; RESP 16–18; TEMP 36.7; O2SAT 96–99; BMI 24.4
--- NOTE | 2020-07-08 14:17 | DI.CT.S_ITS ---
PROCEDURE: CT HEAD/BRAIN WO CON INDICATIONS: numbness tingling TECHNIQUE: Noncontrast 4.5 mm thick angled axial sections acquired from the foramen magnum to the vertex, with coronal and sagittal reformats. For radiation dose reduction, the following was used: automated exposure control, adjustment of mA and/or kV according to patient size. COMPARISON: None. FINDINGS: Image quality: Excellent. CSF spaces: Basal cisterns are patent. No extra-axial fluid collections. The ventricles are symmetric in size and shape. Brain: No intracranial bleeds or masses. There is cerebral volume loss for age, with resultant ventricular and sulcal prominence. There are periventricular and deep white matter chronic small vessel ischemic changes. There is intracranial internal carotid artery atherosclerosis. Skull and face: Calvarium and visualized facial bones appear intact, without suspicious lesions. Sinuses: Visualized sinuses and mastoids are clear. IMPRESSION: No CT evidence of acute intracranial process. Dictated by: Gem Baker M.D. on 07/08/2020 at 15:57 Approved by: Gem Baker M.D. on 07/08/2020 at 15:58
[2020-07-08] MEDS: SODIUM CHLORIDE 0.9% 1,000 ML 150 ML IV (14:43)
--- NOTE | 2020-07-08 14:45 | ED_ITS ---
HPI - Neuro Symptoms/Deficit General Chief Complaint: Neuro Symptoms/Deficit Stated Complaint: general numbness Time Seen by Provider: 07/08/20 14:00 Source: patient Mode of arrival: Ambulatory Limitations: no limitations History of Present Illness HPI Narrative: 59-year-old male former smoker with history of hypertension, prostate cancer (on chemo) with memory problems presents with a chief complaint of 2 weeks of vague symptoms including episodes of on and off total body numbness. He states he had some numbness on his face over the past 2 days as well. He has no focal neurologic findings such as blurred vision, trouble speech or unilateral numbness, weakness or tingling. He denies any pain. He denies any fever or chills. He has no chest pain or shortness of breath. He states that about 2 weeks ago he started a new chemotherapy for his prostate cancer. He denies any exposure to COVID-19 is otherwise well and free of complaint. He is currently not having any symptoms Onset (ago): day(s) Severity: moderate Quality: numb and tingling Relieving factors: none Exacerbating factors: none Context: other On Anticoagulants: No Associated symptoms: denies other symptoms Treatments Prior to Arrival: none Related Data Home Medications Medication Instructions Recorded Confirmed amlodipine [Norvasc] 10 mg PO DAILY #0 07/01/17 06/27/20 multivitamin 1 tab PO DAILY 03/04/18 06/27/20 levothyroxine 25 mcg PO DAILY 04/15/19 06/27/20 omeprazole 20 mg PO DAILY 04/15/19 06/27/20 lithium carbonate 600 mg PO BEDTIME 03/28/20 06/27/20 aspirin 81 mg PO DAILY 05/02/20 06/27/20 losartan 100 mg DAILY 06/07/20 06/27/20 Previous Rx's Medication Instructions Recorded abiraterone 1,000 mg PO DAILY #120 tab 06/07/20 abiraterone 1,000 mg PO QAM 30 Days #60 tab 06/07/20 tamsulosin [Flomax] 0.4 mg PO BEDTIME #30 cap 06/07/20 prednisone 5 mg PO BID #60 tab 06/13/20 alprazolam 0.5 mg tablet 0.5 mg PO BID PRN 30 Days #30 tab 06/27/20 oxycodone 5 mg PO Q6H PRN #28 tab 06/29/20 Allergies Allergy/AdvReac Type Severity Reaction Status Date / Time atenolol [From TENORMIN] AdvReac Unknown psychosis Verified 06/27/20 14:59 aerosol sprays Allergy Intermediate states Uncoded 06/27/20 14:59 that his lungs close up and he can't breathe perfume Allergy Intermediate states Uncoded 06/27/20 14:59 that his lungs close up and he can't breathe puppy breath Allergy Intermediate states Uncoded 06/27/20 14:59 that his lungs close up and he can't breathe Review of Systems Constitutional Constitutional: Denies chills, Denies fatigue, Denies fever(s), Denies frequent falls, Denies lethargy and Denies weakness Eyes Eyes: Denies change in vision, Denies eye discharge, Denies irritation and Denies loss of vision ENT Ears, Nose, Mouth, and Throat: Denies change in voice, Denies dizziness, Denies neck pain, Denies sore throat and Denies throat swelling Cardiovascular Cardiovascular: Denies chest pain, Denies irregular heart rhythm, Denies lightheadedness, Denies palpitations, Denies dyspnea, Denies dyspnea on exertion and Denies orthopnea Respiratory Respiratory: Denies cough, Denies dyspnea, Denies dyspnea on exertion and Denies wheezing Gastrointestinal Gastrointestinal: Denies abdominal pain, Denies change in bowel habits, Denies diarrhea, Denies nausea and Denies vomiting Musculoskeletal Musculoskeletal: Denies neck pain, Reports numbness and Reports tingling Integumentary/Breasts Skin/Breast: Denies pruritus, Denies erythema, Denies rash and Denies wounds Neurologic Neurologic: Denies behavioral changes, Denies confusion, Denies dizziness, Denie s frequent falls, Denies loss of vision, Reports numbness, Reports tingling and Denies weakness Psychiatric Psychiatric: Denies anxiety, Denies behavioral changes, Denies confusion, Denies depression, Denies homicidal ideation and Denies suicidal ideation Endocrine Endocrine: Denies fatigue, Denies flushing and Denies palpitations Hematologic/Lymphatic Hematologic/Lymphatic: Denies easy bruising Allergic/Immunologic Allergic/Immunologic: Denies urticaria, Denies throat swelling and Denies wheezing Patient History Medical History Acute GI bleeding ADHD, hyperactive-impulsive type Arthritis Asthma Bipolar 1 disorder, mixed Cognitive impairment Elevated PSA Elevated PSA Family history of prostate cancer Gastroesophageal reflux disease with hiatal hernia HTN (hypertension) Internal hemorrhoids Lower urinary tract symptoms (LUTS) Medication side effects Nightmares associated with chronic post-traumatic stress disorder Osteopenia Prostate cancer PTSD (post-traumatic stress disorder) Family History Father Hypertension Brother Stroke Social History marital status: household members: spouse and children occupational status: disabled Smoking Status: Former smoker alcohol intake: never substance use type: does not use Smoking Status: Former smoker alcohol intake frequency: holidays/special occasions only Substance Use Type: marijuana Exam Narrative Exam Narrative: GENERAL: [59] year old patient appears stated age. Well- nourished, well-developed patient, in mild distress. HEAD: Atraumatic. Normocephalic. EYES: Pupils equal round and reactive. Extraocular motions intact. No scleral icterus. No injection or drainage. ENT: Nose without bleeding, purulent drainage. Throat without erythema, tonsillar hypertrophy or exudate. Airway patent. NECK: Trachea midline. Non tender CARDIOVASCULAR: Regular rate and rhythm without murmurs, gallops, or rubs. RESPIRATORY: Clear to auscultation. Breath sounds equal bilaterally. No wheezes, rales, or rhonchi. GASTROINTESTINAL: Abdomen soft, non-tender, nondistended. EXTREMITIES: No edema or joint tenderness. BACK: Nontender without deformity or crepitance. No flank tenderness. NEURO: AOx3. SKIN: No rash or erythema of visible areas NIH Stroke Scale 1a. LOC: Patient is alert and keenly responsive (0) 1b. LOC Questions: Patient answers both LOC questions accurately (0) 1c. LOC Commands: Patient performs both tasks correctly (0) 2. Best Gaze: Normal (0) 3. Visual: No visual loss (0) 4. Facial palsy: Normal symmetrical movements (0) 5. Motor arm: No drift (0) 6. Motor leg: No drift (0) 7. Limb ataxia: Absent (0) 8. Sensory: Normal (0) 9. Best language: No aphasia; normal (0) 10. Dysarthria: Normal (0) 11. Extinction and inattention: No abnormality (0) NIHSS: 0 Initial Vital Signs Initial Vital Signs: Vital Signs Temperature 98.0 F 07/08/20 14:07 Pulse Rate 85 07/08/20 14:07 Respiratory Rate 16 07/08/20 14:07 Blood Pressure 179/92 H 07/08/20 14:07 Pulse Oximetry 99 07/08/20 14:07 Course Orders Ordered: ED Orders 07/08/20 14:17 CT head/brain wo con Stat EKG-12 Lead Stat 07/08/20 14:55 Basic Metabolic Panel Stat Complete Blood Count AUTO DIFF Stat Partial Thromboplastin Time Stat Prothrombin Time INR Stat Discontinued Medications Sodium Chloride (Normal Saline 0.9%) 1,000 mls @ 150 mls/hr IV CONT JOSH Last Infusion: 07/08/20 17:00 Dose: 150 mls/hr Documented by: Admin: 07/08/20 14:43 Dose: 150 mls/hr Documented by: GREG Vital Signs Vital signs: Vital Signs - 8 hr 07/08/20 14:07 07/08/20 15:01 07/08/20 15:03 Temperature 98.0 F Pulse Rate 85 77 76 Respiratory Rate 16 18 Blood Pressure 179/92 H 156/85 H Pulse Oximetry 99 96 98 07/08/20 15:30 07/08/20 16:00 07/08/20 16:33 Temperature Pulse Rate 71 70 75 Respiratory Rate 17 18 Blood Pressure 139/79 143/76 H Pulse Oximetry 97 98 99 07/08/20 16:34 Temperature Pulse Rate 72 Respiratory Rate Blood Pressure 145/75 H Pulse Oximetry 99 MDM - Neuro Symptoms/Deficit Lab Data Result diagrams: 07/08/20 14:55 07/08/20 14:55 Labs: Lab Results 07/08/20 07/08/20 07/08/20 Range/Units 14:55 14:55 14:55 WBC 21.7 H (4.5-11.0) X10^3/uL RBC 4.68 (4.5-5.9) X10^6/uL Hgb 13.9 (13.5-17.5) g/dL Hct 41.8 (41-53) % MCV 89.2 (80-100) fL MCH 29.6 (26-34) PG MCHC 33.2 (30-36) % RDW 14.6 (11.6-14.8) % Plt Count 319 (150-400) X10^3/uL Neut % (Auto) 34.0 L (50-75) % Lymph % (Auto) 61.0 H (25-40) % [place] % (Auto) 3.9 (3-14) % Eos % (Auto) 0.8 L (2-4) % Baso % (Auto) 0.3 (0-2) % Neut # (Auto) 7400 H (8037-0755) /uL Lymph # (Auto) 91500 H (1293-1719) /uL [place] # (Auto) 800 (0-900) /uL Eos # (Auto) 200 (0-450) /uL Baso # (Auto) 100 (0-100) /uL Reactive Lymphocytes 1+ H Smudge Cells 2+ H WBC Morphology Comment 2+ atypical lymphs RBC Morphology Normal morphology PT 10.7 (10.1-12.7) SECONDS INR 0.9 (0.9-1.3) APTT 31 (26.4-36.2) SECONDS Sodium 136 L (137-145) mmol/L Potassium 3.7 (3.4-5.1) mmol/L Chloride 104 (98-107) mmol/L Carbon Dioxide 26 (22-32) mmol/L BUN 19 (9-20) mg/dL Creatinine 0.94 (0.66-1.25) mg/dL Estimated GFR > 60.0 (>60) mL/min BUN/Creatinine Ratio 20.2 (6-22) Glucose 104 (80-110) mg/dL Calcium 9.7 (8.4-10.2) mg/dL [facility] Narrative Medical decision making narrative: Patient had episodes of very nondescript and widespread tingling that seems to move around his body and includes his face, arms, chest and legs. He has no focal neurologic findings at any point such as blurred vision, weakness, trouble speech or other. He has no symptoms here in the department. His symptoms started soon after initiating the treatment of a chemotherapeutic agent. CT demonstrates no stroke, no electrolyte abnormalities noted. He does have a leukocytosis but no signs of infection, no fever or chills, and frequently his had elevated white blood cells in the past. He is under the care of Hematology and Oncology and plans to follow-up with them early in the week. I did discuss this on the phone with his as he admitted the is forgetful. Both have been given return precautions, had their questions answered to their apparent satisfaction and have an understanding and agreement with the diagnosis and plan Discharge Plan Departure Patient Disposition: Home Clinical Impression: Facial paresthesia, Paresthesias Instructions: DI for Numbness/Tingling Activity Restrictions/Additional Instructions: *You have been diagnosed with [resolved, generalized paresthesias] *What to do: *Take medications as directed *Follow up with your primary oncologist in 2-3 days, call for an appointment. Let them know you were seen in the Emergency Department and that we ask that you be seen in follow up, it would seem reasonable to discuss whether not your chemotherapeutic agent is likely to contribute to your symptoms *Return to ER if you should have any new, worsening or concerning symptoms Prescriptions: No Action multivitamin tablet 1 tab PO DAILY RF: 0 alprazolam [Xanax] 0.5 mg tablet 0.5 mg PO BID PRN (Reason: anxiety) 30 Days Qty: 30 RF: 1 amlodipine [Norvasc] 10 MG tablet 10 mg PO DAILY Qty: 0 RF: 0 lithium carbonate 300 mg capsule 600 mg PO BEDTIME RF: 0 aspirin 81 mg Tablet,Chewable 81 mg PO DAILY RF: 0 losartan 100 mg Tablet 100 mg DAILY RF: 0 abiraterone 500 mg Tablet 1,000 mg PO QAM 30 Days Qty: 60 RF: 6 tamsulosin [Flomax] 0.4 mg Capsule 0.4 mg PO BEDTIME Qty: 30 RF: 2 abiraterone 250 mg Tablet 1,000 mg PO DAILY Qty: 120 RF: 6 prednisone 5 mg Tablet 5 mg PO BID Qty: 60 RF: 6 oxycodone 5 mg Tablet 5 mg PO Q6H PRN (Reason: cancer pain) Qty: 28 RF: 0 levothyroxine 50 mcg tablet 25 mcg PO DAILY RF: 0 omeprazole 20 mg capsule,delayed release(DR/EC) 20 mg PO DAILY RF: 0 Referrals: Lina Hutton DO [Primary Care Provider] -
[2020-07-08 15:35] LABS: INR 0.9 (0.9-1.3); Prothrombin Time 10.7 SECONDS (10.1-12.7)
[2020-07-08 15:38] LABS: PTT Partial Thromboplastin Tim 31 SECONDS (26.4-36.2)
[2020-07-08 15:39] LABS: BUN Creatinine Ratio 20.2 (6-22); Blood Urea Nitrogen 19 mg/dL (9-20); Calcium 9.7 mg/dL (8.4-10.2); Carbon Dioxide 26 mmol/L (22-32); Chloride 104 mmol/L (98-107); Estimated Glomerular Filt Rate > 60.0 mL/min (>60); Glucose 104 mg/dL (80-110); HEMOLYSIS < 15 (0-50); Potassium 3.7 mmol/L (3.4-5.1); Sodium 136 mmol/L (137-145)
[2020-07-08 15:45] LABS: Basophils Absolute Auto 100 /uL (0-100); Basophils Percent Auto 0.3 % (0-2); Eosinophils Absolute Auto 200 /uL (0-450); Eosinophils Percent Auto 0.8 % (2-4); Hematocrit 41.8 % (41-53); Hemoglobin 13.9 g/dL (13.5-17.5); Lymphocytes Absolute Auto 13200 /uL (1100-4500); Mean Corpuscular HGB Conc 33.2 % (30-36); Mean Corpuscular Hemoglobin 29.6 PG (26-34); Mean Corpuscular Volume 89.2 fL (80-100); Monocytes Absolute Auto 800 /uL (0-900); Monocytes Percent Auto 3.9 % (3-14); Neutrophils Absolute Auto 7400 /uL (1500-7000); Platelet Count 319 X10^3/uL (150-400); Red Blood Cell Count 4.68 X10^6/uL (4.5-5.9); Red Cell Distribution Width 14.6 % (11.6-14.8); White Blood Cell Count 21.7 X10^3/uL (4.5-11.0)
[2020-07-08 15:46] LABS: Add Manual Diff / Slide Review SLIDE REVIEW
[2020-07-08 15:47] LABS: RBC Morphology Normal Morphology; Smudge Cells 2+
[2020-07-08 15:48] LABS: Reactive Lymphocytes 1+; WBC Morphology Comment 2+ Atypical Lymphs
== END 2020-07-08 17:05 | disposition home or self-care (01) ==
PROVIDERS: Emergency Provider Emergency Medicine; Family Provider Nurse Practitioner Psychiatric/Mental Health; PCP Family Medicine
DX: R20.2 Paresthesia of skin (principal); I10 Essential (primary) hypertension; C61 Malignant neoplasm of prostate; Z79.82 Long term (current) use of aspirin; F31.9 Bipolar disorder, unspecified
CPT/HCPCS: 36415; 70450; 80048; 85025; 85610; 85730; 93005; 96360; 96361; 99283; 99284

== ENCOUNTER → 2020-08-02 12:36 | Outpatient (CLI) | payer MEDICARE, SELFPAY ==
[2020-08-02 13:23] LABS: Alanine Aminotransferase 61 IU/L (<50); Albumin 4.3 g/dL (3.5-5.0); Albumin Globulin Ratio 1.3 (1.0-2.8); Alkaline Phosphatase 107 U/L (38-126); Aspartate Aminotransferase 56 IU/L (17-59); BUN Creatinine Ratio 17.5 (6-22); Bilirubin Total 0.3 mg/dL (0.2-1.3); Blood Urea Nitrogen 14 mg/dL (9-20); Carbon Dioxide 29 mmol/L (22-32); Chloride 107 mmol/L (98-107); Estimated Glomerular Filt Rate > 60.0 mL/min (>60); Globulin 3.3 g/dL (1.7-4.1); Glucose 99 mg/dL (80-110); HEMOLYSIS < 15 (0-50); Potassium 4.5 mmol/L (3.4-5.1); Sodium 140 mmol/L (137-145); Total Protein 7.6 g/dL (6.3-8.2)
[2020-08-02 13:49] LABS: Prostate Specific Antigen 4.57 ng/mL (0.10-4.00)
== END ==
PROVIDERS: Specialist; Family Provider Nurse Practitioner Psychiatric/Mental Health; PCP Family Medicine; Referring Provider Internal Medicine; Visit Provider Internal Medicine
DX: Z12.5 Encounter for screening for malignant neoplasm of prostate (principal); C61 Malignant neoplasm of prostate
CPT/HCPCS: 36415; 80053; 84153

== ENCOUNTER → 2020-08-28 13:18 | Outpatient (CLI) | payer MEDICARE, SELFPAY ==
[2020-08-28 15:26] LABS: Lithium 0.3 mmol/L (0.6-1.2)
== END ==
PROVIDERS: Specialist; Family Provider Nurse Practitioner Psychiatric/Mental Health; PCP Internal Medicine; Referring Provider Nurse Practitioner Psychiatric/Mental Health; Visit Provider Nurse Practitioner Psychiatric/Mental Health
DX: R97.20 Elevated prostate specific antigen [PSA] (principal); F31.60 Bipolar disorder, current episode mixed, unspecified; Z51.81 Encounter for therapeutic drug level monitoring
CPT/HCPCS: 36415; 80178; 84153

== ENCOUNTER 2021-01-26 15:41 | Emergency (ER) | payer MEDICARE, SELFPAY ==
[2021-01-26 15:53] VITALS: BP 167/106; PULSE 103; RESP 22; TEMP 37.1; O2SAT 99; BMI 25.0
[2021-01-26 16:37] LABS: Add Manual Diff / Slide Review NO; Basophils Absolute Auto 100 /uL (0-100); Basophils Percent Auto 0.7 % (0-2); Eosinophils Absolute Auto 200 /uL (0-450); Eosinophils Percent Auto 3.1 % (2-4); Hematocrit 39.8 % (41-53); Hemoglobin 13.6 g/dL (13.5-17.5); Lymphocytes Absolute Auto 2300 /uL (1100-4500); Mean Corpuscular HGB Conc 34.1 % (30-36); Mean Corpuscular Hemoglobin 30.9 PG (26-34); Mean Corpuscular Volume 90.6 fL (80-100); Monocytes Absolute Auto 500 /uL (0-900); Monocytes Percent Auto 6.4 % (3-14); Neutrophils Absolute Auto 4700 /uL (1500-7000); Neutrophils Percent Auto 60.8 % (50-75); Platelet Count 271 X10^3/uL (150-400); Red Blood Cell Count 4.39 X10^6/uL (4.5-5.9); Red Cell Distribution Width 13.1 % (11.6-14.8); White Blood Cell Count 7.8 X10^3/uL (4.5-11.0)
[2021-01-26 16:40] LABS: COVID19 -Nasal RAPID Negative (Negative)
[2021-01-26 16:47] LABS: Alanine Aminotransferase 28 IU/L (<50); Albumin 4.4 g/dL (3.5-5.0); Albumin Globulin Ratio 1.3 (1.0-2.8); Alkaline Phosphatase 94 U/L (38-126); Aspartate Aminotransferase 34 IU/L (17-59); Bilirubin Total 0.5 mg/dL (0.2-1.3); Blood Urea Nitrogen 13 mg/dL (9-20); Calcium 9.3 mg/dL (8.4-10.2); Carbon Dioxide 24 mmol/L (22-32); Chloride 106 mmol/L (98-107); Estimated Glomerular Filt Rate > 60.0 mL/min (>60); Ethanol (ETOH) < 10 mg/dL; Globulin 3.3 g/dL (1.7-4.1); Glucose 129 mg/dL (80-110); HEMOLYSIS 17 (0-50); Potassium 4.3 mmol/L (3.4-5.1); Sodium 141 mmol/L (137-145); Total Protein 7.7 g/dL (6.3-8.2)
[2021-01-26 18:51] LABS: UR Morphine/Opiate cutoff 300 Negative (Negative); Ur Creatinine Normal (Normal); Ur Specific Gravity Normal (Normal); Urine Amphetamines Negative (Negative); Urine Barbiturates Negative (Negative); Urine Benzodiazepines Positive (Negative); Urine Cocaine Negative (Negative); Urine MDMA Negative (Negative); Urine Methadone Negative (Negative); Urine Methamphetamines Negative (Negative); Urine Oxycodone Negative (Negative); Urine Phencyclidine Negative (Negative); Urine Tetrahydrocannabinol Positive (Negative); Urine Tricyclic Antidepressant Negative (Negative); Urine pH Normal (Normal)
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
[2021-01-26] MEDS: QUETIAPINE 100 MG TABLET 200 MG PO (21:16)
--- NOTE | 2021-01-27 07:30 | PC.NURSE ---
received report from Jesenia, and checked on pt. Door was closed and pt has been complient over the casework specialist and is not a harm to himself or others. Pt sleeping comfortably. Soft easy respirations.
[2021-01-27 07:47] LABS: Valproic Acid (Depakene) Total 17 ug/mL (50-100)
[2021-01-27 07:54] VITALS: BP 149/84; RESP 16; O2SAT 100
--- NOTE | 2021-01-27 09:03 | PC.NURSE ---
pt had breakfast and wanted to tell me his story. Pt was rambling on for an extended period about how he hears god and that he is a profit that can make miracles happen. pt had rapid flight of thought and became intermittently tearful. pt seemed stressed but cooperative
[2021-01-27 10:57] VITALS: BP 167/94; PULSE 67; RESP 18; TEMP 37; O2SAT 98
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
--- NOTE | 2021-01-27 14:31 | CM.SWNOTE ---
CATH LAB Note Placed call to [place] multiple times this morning, no answer. Placed call to [facility]; worked on coordination throughout the morning and patient was inevitably accepted, patient agreeable so ED team began assisting w/coordination of DC and transport to [facility] inpatient psych unit JW
--- NOTE | 2021-01-27 14:48 | PC.NURSE ---
Pt now saying he does not want to go to in patient hospitalization. Sisters here and are going to speak with him. They are aware that he is not able to be involuntarily detained. GLIDING PILOT INSTRUCTOR aware and she believes if he does not want voluntary hospitalization he can be discharged home.
[2021-01-27 15:14] VITALS: BP 154/96; PULSE 88; RESP 18; O2SAT 97
--- NOTE | 2021-01-30 14:16 | ONC.MSW ---
T/C-Inpt Psych Status Activity: Reviewed [facility] EMR for the ED note over this last weekend. Pt presented to the ED after being released from 1-night of long-term time, demonstrating paranoia and was delusional. He was agreeable to voluntary psych inpt due to psychotic manic episode, was accepted at [facility] inpt psych unit. This SUPPORT SERVICES REP called over there to clarify how long he will be inpt, and when his approximate d/c will be. The psychiatrist, Dr. Law, states that pt will remain there at least another week, however, pt arrived without any of his ONC meds. He inquired which meds pt will be needing while he is inpt. SUPPORT SERVICES REP explained that the fabrication engineer will speak to our Oncologist on today, and will call back cristhian re: med needs. No further needs indicated at this time. Called scheduling, asked for his appt. this week to be cancelled.
== END 2021-01-27 15:15 ==
PROVIDERS: Emergency Medicine; Emergency Provider Emergency Medicine; Family Provider Nurse Practitioner Psychiatric/Mental Health; PCP Internal Medicine
DX: F22 Delusional disorders (principal); R07.9 Chest pain, unspecified; Z20.822 Contact with and (suspected) exposure to COVID-19
CPT/HCPCS: 36415; 80053; 80164; 80305; 80320; 81003; 85025; 87635; 93005; 93010; 99284; C9803

== ENCOUNTER 2021-02-11 09:21 | Emergency (ER) | payer MEDICARE, SELFPAY ==
[2021-02-11 09:26] VITALS: BP 138/89; PULSE 72; RESP 15; TEMP 36.8; O2SAT 99; BMI 24.4
--- NOTE | 2021-02-11 09:43 | ED.LOWEXIN ---
HPI - Extremity Injury (Lower) General Chief Complaint: Extremity Injury, Lower Stated Complaint: fatigue Time Seen by Provider: 02/11/21 09:41 Source: patient and EMS Mode of arrival: EMS Limitations: no limitations History of Present Illness HPI Narrative: This is a 60-year-old male who comes for a AMS for fatigue after further discussion patient states he was worried about renal failure yesterday. He does have a history of possible bipolar and has been off his lithium recently. He was voluntarily placed earlier in January around the 2020. Patient at this time has already spoken with the social service agency director and does not have any other complaints. He has not been taking his medications regularly. He does have an appointment set up on February 15 with Rosaline Gant but he was unsure of the date and time and this was shared with the patient. He about a laptop which he states is locked in a car. He states secured but he does not have access to the vehicle. He is states that he has been in contact with his daughter who is supposed to come get him and take him to a pool constitution party. Social work to contact his daughter who states that she is not taking to multiple constitution party today and she has 8 children that she is responsible for. He does have a history of hypertension, and reports lymphoproliferative disorder and prostate cancer on past visits. Patient makes multiple statements reflecting paranoid thoughts, he has pressured speech but is fluent with good eye contact and able to carry a conversation. Related Data Home Medications Medication Instructions Recorded Confirmed aspirin 81 mg chewable tablet 81 mg PO DAILY 05/02/20 12/27/20 Previous Rx's Medication Instructions Recorded abiraterone 500 mg tablet 1,000 mg PO QAM 30 Days #60 tab 06/07/20 amlodipine 10 mg tablet (Norvasc) 10 mg PO DAILY #90 tab 08/04/20 losartan 100 mg tablet 100 mg PO DAILY #90 tab 08/04/20 abiraterone 250 mg tablet 1,000 mg PO DAILY #120 tab 08/16/20 lithium carbonate 300 mg capsule 1,200 mg PO BEDTIME #120 cap 12/15/20 Disabled Parking #1 ea 01/04/21 divalproex 250 mg tablet,extended See Rx Instructions PO DAILY #60 01/11/21 release 24 hr (Depakote ER) tab Allergies Allergy/AdvReac Type Severity Reaction Status Date / Time atenolol [From TENORMIN] AdvReac Unknown psychosis Verified 01/26/21 16:05 aerosol sprays Allergy Intermediate states Uncoded 01/26/21 16:05 that his lungs close up and he can't breathe perfume Allergy Intermediate states Uncoded 01/26/21 16:05 that his lungs close up and he can't breathe puppy breath Allergy Intermediate states Uncoded 01/26/21 16:05 that his lungs close up and he can't breathe Review of Systems Review of Systems ROS Unobtainable: All systems reviewed & are unremarkable except as noted in HPI and below Patient History Medical History Acute GI bleeding ADHD, hyperactive-impulsive type Arthritis Asthma Bipolar 1 disorder, mixed CLL (chronic lymphocytic leukemia) (~06/2020) Cognitive impairment Elevated PSA Essential hypertension Family history of prostate cancer Gastroesophageal reflux disease with hiatal hernia Generalized anxiety disorder HTN (hypertension) (~1989) Internal hemorrhoids Lower urinary tract symptoms (LUTS) Nightmares associated with chronic post-traumatic stress disorder Osteopenia Peripheral edema Prostate cancer metastatic to intrapelvic lymph node (~2019) PTSD (post-traumatic stress disorder) Family History (Updated 10/28/20 @ 20:28 by Patti Garner) Father Hypertension Cancer Brother Stroke Hypertension Sister Cancer Grandfather Rupture, aorta Social History marital status: household members: spouse and children occupational status: disabled Smoking Status: Current some day smoker alcohol intake: never substance use type: does not use Smoking Status: Current some day smoker tobacco type: cigarettes alcohol intake frequency: holidays/special occasions only Substance Use Type: marijuana Exam Narrative Exam Narrative: GENERAL: Alert and oriented x three, male in mild distress. HEENT: Head normocephalic, atraumatic, EOMI, pupils reactive, face symmetric, moist mucous membranes NECK: Supple, full range of motion CARDIOVASCULAR: Regular rate and rhythm without murmurs, rubs or gallops. RESPIRATORY: Breath sounds equal bilaterally, no wheezes rales or rhonchi. ABDOMEN: Soft, nontender. Normoactive bowel sounds all 4 quadrants. No guarding or rebound, rigidity, no mass EXTREMITIES: Normal range of motion, no clubbing or edema. Neurovascularly intact NEUROLOGICAL: Cranial nerves II through XII grossly intact. Moving all extremities. Normal gait. SKIN: Warm, dry, no petechiae, no rashes or lesions. PSYCH: No suicidal homicidal thoughts. No visual or auditory hallucinations appreciated. Patient does have pressured speech, slightly tangential thinking thinking but able to follow conversation clearly. Patient does have some paranoid thoughts as well as some fixed delusions. These do not seem to be new in comparison to prior visits. Initial Vital Signs Initial Vital Signs: Vital Signs Temperature 98.2 F 02/11/21 09:26 Pulse Rate 72 02/11/21 09:26 Respiratory Rate 15 02/11/21 09:26 Blood Pressure 138/89 02/11/21 09:26 Pulse Oximetry 99 02/11/21 09:26 Course Orders Ordered: ED Orders 02/11/21 10:24 Urinalysis and Microscopic Stat Urine Drug Screen, Rapid Stat Discontinued Medications Acetaminophen (Acetaminophen 325 Mg Tablet) 650 mg PO NOW ONE Stop: 02/11/21 10:31 Last Admin: 02/11/21 10:34 Dose: 650 mg Documented by: ABDIRAHMAN Vital Signs Vital signs: Vital Signs - 8 hr 02/11/21 09:26 Temperature 98.2 F Pulse Rate 72 Respiratory Rate 15 Blood Pressure 138/89 Pulse Oximetry 99 MDM - Extremity Injury (Lower) Lab Data Result diagrams: 02/11/21 10:00 02/11/21 10:00 Labs: Lab Results 02/11/21 02/11/21 02/11/21 Range/Units 09:50 10:00 10:00 WBC 8.9 (4.5-11.0) X10^3/uL RBC 3.85 L (4.5-5.9) X10^6/uL Hgb 11.5 L (13.5-17.5) g/dL Hct 35.2 L (41-53) % MCV 91.4 (80-100) fL MCH 30.0 (26-34) PG MCHC 32.8 (30-36) % RDW 13.1 (11.6-14.8) % Plt Count 206 (150-400) X10^3/uL Neut % (Auto) Not Reportable Lymph % (Auto) Not Reportable Menard % (Auto) Not Reportable Eos % (Auto) Not Reportable Baso % (Auto) Not Reportable Lymph # (Auto) Not Reportable [place] # (Auto) Not Reportable Baso # (Auto) Not Reportable Total Counted 100 Seg Neutrophils % 60.0 (38-70) % Band Neutrophils % 4.0 (3-7) % Lymphocytes % (Manual) 18.0 L (25-45) % Monocytes % (Manual) 15.0 H (2-11) % Eosinophils % (Manual) 3.0 (2-4) % Neutrophils # (Manual) 5696 ([id number]) /uL RBC Morphology See below Polychromasia 1+ H Anisocytosis 1+ H Sodium (137-145) mmol/L Potassium (3.4-5.1) mmol/L Chloride (98-107) mmol/L Carbon Dioxide (22-32) mmol/L BUN (9-20) mg/dL Creatinine (0.66-1.25) mg/dL Estimated GFR (>60) mL/min BUN/Creatinine Ratio (6-22) Glucose (80-110) mg/dL Calcium (8.4-10.2) mg/dL Total Bilirubin (0.2-1.3) mg/dL AST (17-59) IU/L ALT (<50) IU/L Alkaline Phosphatase (38-126) U/L Total Protein (6.3-8.2) g/dL Albumin (3.5-5.0) g/dL Globulin (1.7-4.1) g/dL Albumin/Globulin Ratio (1.0-2.8) TSH 2.64 (0.47-4.68) uIU/mL Urine Color Urine Appearance Urine pH (4.5-8.0) Ur Specific [place] (1.000-1.035) Urine Protein (Negative) Urine Glucose (UA) (Negative) g/dL Urine Ketones (NEGATIVE) Urine Occult Blood (Negative) Urine Nitrate (Negative) Urine Bilirubin (NEGATIVE) Urine Urobilinogen (0.2) E.U./dL Ur Leukocyte Esterase (NEGATIVE) Urine RBC (0-5/HPF) Urine WBC (0-5/HPF) Ur Squamous Epith Cells (0-5/HPF) Urine Bacteria (None) Ur Culture Indicated? U Opiates 300ng/mL cut (Negative) Ur Oxycodone Screen (Negative) Urine Methadone Screen (Negative) Ur Barbiturates Screen (Negative) U Tricyclic Antidepress (Negative) Ur Phencyclidine Scrn (Negative) Ur Amphetamines Screen (Negative) U Methamphetamines Scrn (Negative) Ur MDMA Scrn (Ecstasy) (Negative) U Benzodiazepines Scrn (Negative) [place] < 0.2 L (0.6-1.2) mmol/L Urine Cocaine Screen (Negative) U Marijuana (THC) Screen (Negative) Ethyl Alcohol ( - 10) mg/dL SARS-CoV-2 (PCR) Negative (Negative) 02/11/21 02/11/21 02/11/21 Range/Units 10:00 10:24 10:24 WBC (4.5-11.0) X10^3/uL RBC (4.5-5.9) X10^6/uL Hgb (13.5-17.5) g/dL Hct (41-53) % MCV (80-100) fL MCH (26-34) PG MCHC (30-36) % RDW (11.6-14.8) % Plt Count (150-400) X10^3/uL Neut % (Auto) Lymph % (Auto) [place] % (Auto) Eos % (Auto) Baso % (Auto) Lymph # (Auto) [place] # (Auto) Baso # (Auto) Total Counted Seg Neutrophils % (38-70) % Band Neutrophils % (3-7) % Lymphocytes % (Manual) (25-45) % Monocytes % (Manual) (2-11) % Eosinophils % (Manual) (2-4) % Neutrophils # (Manual) ([id number]) /uL RBC Morphology Polychromasia Anisocytosis Sodium 144 (137-145) mmol/L Potassium 4.2 (3.4-5.1) mmol/L Chloride 115 H (98-107) mmol/L Carbon Dioxide 23 (22-32) mmol/L BUN 14 (9-20) mg/dL Creatinine 0.73 (0.66-1.25) mg/dL Estimated GFR > 60.0 (>60) mL/min BUN/Creatinine Ratio 19.2 (6-22) Glucose 96 (80-110) mg/dL Calcium 8.9 (8.4-10.2) mg/dL Total Bilirubin 0.1 L (0.2-1.3) mg/dL AST 37 (17-59) IU/L ALT 30 (<50) IU/L Alkaline Phosphatase 84 (38-126) U/L Total Protein 6.4 (6.3-8.2) g/dL Albumin 3.5 (3.5-5.0) g/dL Globulin 2.9 (1.7-4.1) g/dL Albumin/Globulin Ratio 1.2 (1.0-2.8) TSH (0.47-4.68) uIU/mL Urine Color Yellow Urine Appearance Clear Urine pH 5.0 (4.5-8.0) Ur Specific [place] 1.020 (1.000-1.035) Urine Protein Negative (Negative) Urine Glucose (UA) Negative (Negative) g/dL Urine Ketones Negative (NEGATIVE) Urine Occult Blood Negative (Negative) Urine Nitrate Negative (Negative) Urine Bilirubin Negative (NEGATIVE) Urine Urobilinogen 0.2 (0.2) E.U./dL Ur Leukocyte Esterase Negative (NEGATIVE) Urine RBC 0-1/hpf (0-5/HPF) Urine WBC 0-1/hpf (0-5/HPF) Ur Squamous Epith Cells 0-1 /hpf (0-5/HPF) Urine Bacteria Occasional (0-1) (None) Ur Culture Indicated? Cult not indicated U Opiates 300ng/mL cut Negative (Negative) Ur Oxycodone Screen Negative (Negative) Urine Methadone Screen Negative (Negative) Ur Barbiturates Screen Negative (Negative) U Tricyclic Antidepress Negative (Negative) Ur Phencyclidine Scrn Negative (Negative) Ur Amphetamines Screen Negative (Negative) U Methamphetamines Scrn Negative (Negative) Ur MDMA Scrn (Ecstasy) Negative (Negative) U Benzodiazepines Scrn Negative (Negative) [place] (0.6-1.2) mmol/L Urine Cocaine Screen Negative (Negative) U Marijuana (THC) Screen Positive H (Negative) Ethyl Alcohol < 10 ( - 10) mg/dL SARS-CoV-2 (PCR) (Negative) MDM Narrative Medical decision making narrative: Patient seen by social work. He is not interested in placement at this time he does not meet any criteria for detainment or involuntary placement. He has been off his lithium and has his medications available to him and with him at this time. Patient is also interested in following up his appointment with his psychiatric team. We were able to confirm he has an appointment on February 15 at 2:00 p.m. and this information was shared with him. Patient would like to return home at this time. Social work was in contact with his daughter and patient is open having the ER social Work reach out to him in the next 1-2 days for recheck. Facesheet was left for ER social service agency director. Discharge Plan Departure Patient Disposition: Home Clinical Impression: Delusion Activity Restrictions/Additional Instructions: Your labs today are reassuring. Your renal function is normal. You have mild anemia which is at baseline. With no other major lab abnormalities today. You have an appointment with Rosaline Bolivar on February 15 at 1400 (2pm). Please make sure you attend this appointment. Please return for new or worsening symptoms, altered mental status, suicidal thoughts or thoughts or harming yourself or others, hallucinations, new worsening paranoid thoughts that are impeding her day-to-day activity or other new or concerning symptoms. Prescriptions: No Action lithium carbonate 300 mg capsule 1,200 mg PO BEDTIME Qty: 120 RF: 1 Hold Instructions: change to tablets divalproex [Depakote ER] 250 mg tablet extended release 24 hr See Rx Instructions PO DAILY Qty: 60 RF: 0 (DME) Disabled Parking See Rx Instructions .ROUTE .MEDSUPPLY Qty: 1 RF: 0 losartan 100 mg tablet 100 mg PO DAILY Qty: 90 RF: 3 amlodipine [Norvasc] 10 mg tablet 10 mg PO DAILY Qty: 90 RF: 3 aspirin 81 mg Tablet,Chewable 81 mg PO DAILY RF: 0 abiraterone 500 mg Tablet 1,000 mg PO QAM 30 Days Qty: 60 RF: 6 abiraterone 250 mg Tablet 1,000 mg PO DAILY Qty: 120 RF: 12 Referrals: David Rosas MD [Primary Care Provider] - Rosaline Bolivar ARNP [Family Provider] -
[2021-02-11 10:19] LABS: Hematocrit 35.2 % (41-53); Hemoglobin 11.5 g/dL (13.5-17.5); Mean Corpuscular HGB Conc 32.8 % (30-36); Mean Corpuscular Volume 91.4 fL (80-100); Platelet Count 206 X10^3/uL (150-400); Red Blood Cell Count 3.85 X10^6/uL (4.5-5.9); Red Cell Distribution Width 13.1 % (11.6-14.8); White Blood Cell Count 8.9 X10^3/uL (4.5-11.0)
[2021-02-11 10:22] LABS: Add Manual Diff / Slide Review YES
[2021-02-11 10:27] LABS: Appearance Urine UA CLEAR; Bilirubin Urine UA NEGATIVE (NEGATIVE); Color Urine UA YELLOW; Glucose Urine UA NEGATIVE (Negative); Ketones Urine UA NEGATIVE (NEGATIVE); Leukocyte Esterase Urine UA NEGATIVE (NEGATIVE); Nitrite Urine UA NEGATIVE (Negative); Occult Blood Urine UA NEGATIVE (Negative); Protein Urine UA NEGATIVE (Negative); Urobilinogen Urine UA 0.2 E.U./dL (0.2)
[2021-02-11 10:27] LABS: Alanine Aminotransferase 30 IU/L (<50); Albumin 3.5 g/dL (3.5-5.0); Albumin Globulin Ratio 1.2 (1.0-2.8); Alkaline Phosphatase 84 U/L (38-126); Aspartate Aminotransferase 37 IU/L (17-59); BUN Creatinine Ratio 19.2 (6-22); Bilirubin Total 0.1 mg/dL (0.2-1.3); Blood Urea Nitrogen 14 mg/dL (9-20); Calcium 8.9 mg/dL (8.4-10.2); Carbon Dioxide 23 mmol/L (22-32); Chloride 115 mmol/L (98-107); Estimated Glomerular Filt Rate > 60.0 mL/min (>60); Ethanol (ETOH) < 10 mg/dL; Globulin 2.9 g/dL (1.7-4.1); Glucose 96 mg/dL (80-110); HEMOLYSIS < 15 (0-50); Potassium 4.2 mmol/L (3.4-5.1); Sodium 144 mmol/L (137-145); Total Protein 6.4 g/dL (6.3-8.2)
[2021-02-11] MEDS: ACETAMINOPHEN 325 MG TABLET 650 MG PO (10:34)
[2021-02-11 10:36] LABS: UR Morphine/Opiate cutoff 300 Negative (Negative); Ur Creatinine Normal (Normal); Ur Specific Gravity Normal (Normal); Urine Amphetamines Negative (Negative); Urine Barbiturates Negative (Negative); Urine Benzodiazepines Negative (Negative); Urine Cocaine Negative (Negative); Urine MDMA Negative (Negative); Urine Methadone Negative (Negative); Urine Methamphetamines Negative (Negative); Urine Oxycodone Negative (Negative); Urine Phencyclidine Negative (Negative); Urine Tetrahydrocannabinol Positive (Negative); Urine Tricyclic Antidepressant Negative (Negative); Urine pH Normal (Normal)
[2021-02-11 10:39] LABS: Bacteria Urine Occasional (0-1); Culture Indicated Urine Cult Not Indicated; RBC Urine 0-1/HPF (0-5/HPF); Squamous Epithelial Cell Urine 0-1 /HPF (0-5/HPF); WBC Urine 0-1/HPF (0-5/HPF)
[2021-02-11 10:39] LABS: Lithium < 0.2 mmol/L (0.6-1.2)
[2021-02-11 11:07] LABS: Neutrophils Absolute Manual 5696 /uL (3000-5900); Total Cells Counted 100
[2021-02-11 11:08] LABS: Polychromasia 1+
[2021-02-11 11:09] LABS: Anisocytosis 1+
[2021-02-11 11:11] LABS: TSH w/ Reflex to FT4 2.64 uIU/mL (0.47-4.68)
[2021-02-11 11:12] LABS: COVID19 -Nasal RAPID Negative (Negative)
--- NOTE | 2021-02-11 12:52 | CM.SWNOTE ---
PROJECT PLANNER Note This PROJECT PLANNER requested to consult to assess needs of this 60 yo male, known to this PROJECT PLANNER from a prior ER admission, at which time patient had voluntarily gone to [facility] for inpatient stay. Patient presents via EMS w/stated complaint of fatigue and tells the ED team that he had renal failure yesterday and needed to be seen medically. PROJECT PLANNER consult placed as patient appears in a manic state w/paranoid thoughts, poor insight and pressured speech. Met w/patient, introduced role. Patient is much calmer than our visit together in January, states he is here because he has been in renal failure and needs his medications sorted out, patient would like to know when he is supposed to f/u w/MH provider Rosaline Bolivar. 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 Patient gives this PROJECT PLANNER his dtr Sushma's number P#[phone], states she can pick him up and that he is staying with her...patient states he doesn't have a phone because I will be trapped, I'm so big on face book, I can't have a phone. Placed call to dtr Sushma, she explained patient had stayed with her, her eight children, and spouse for one evening but he could not stay with them again. Patient had a hotel room arranged for today. Sushma explained she and patient communicate daily, states my Dad seems to be backsliding and she is unsure if patient can manage his medications on his own. Sushma has no contributory information re: other supports in patient's life ? Entered patient's room and was asked to leave as patient stating I don't feel well right now Spoke w/Dr Dominguez and SHERIN Perez reviewd POC and DCP; patient denying needs, states he can check in at his hotel at 1600 this afternoon. Patient denies SI/HI and does not appear to be gravely disabled and/or a threat to himself or others today. Patient has been given his appt date/time w/Rosaline Bolivar and encouraged to attend. [facility] home [facility], patient can pay for taxi to [place]. Home meds taken with him. TREVOR Green
== END 2021-02-11 12:31 | disposition home or self-care (01) ==
PROVIDERS: Emergency Provider Emergency Medicine; Family Provider Nurse Practitioner Psychiatric/Mental Health; PCP Internal Medicine
DX: F22 Delusional disorders (principal); D64.9 Anemia, unspecified; Z20.822 Contact with and (suspected) exposure to COVID-19
CPT/HCPCS: 36415; 80053; 80178; 80305; 80320; 81001; 84443; 85007; 85025; 87635; 99283; C9803

== ENCOUNTER → 2021-10-12 07:35 | Outpatient (CLI) | payer MEDICARE, SELFPAY ==
[2021-10-12 08:49] LABS: Lithium 0.9 mmol/L (0.6-1.2)
== END ==
PROVIDERS: Family Provider Nurse Practitioner Psychiatric/Mental Health; PCP Internal Medicine; Referring Provider Psychiatry & Neurology Psychiatry; Visit Provider Psychiatry & Neurology Psychiatry
DX: F31.60 Bipolar disorder, current episode mixed, unspecified (principal); Z51.81 Encounter for therapeutic drug level monitoring
CPT/HCPCS: 36415; 80178

== ENCOUNTER → 2022-12-23 10:57 | Outpatient (CLI) | payer MEDICARE, SELFPAY ==
[2022-12-23 12:53] LABS: Lithium 0.9 mmol/L (0.6-1.2)
== END ==
PROVIDERS: PCP Internal Medicine; Referring Provider Psychiatry & Neurology Psychiatry; Visit Provider Psychiatry & Neurology Psychiatry
DX: F31.60 Bipolar disorder, current episode mixed, unspecified (principal); F43.12 Post-traumatic stress disorder, chronic; F90.2 Attention-deficit hyperactivity disorder, combined type; Z79.899 Other long term (current) drug therapy
CPT/HCPCS: 36415; 80178; 99214

== ENCOUNTER → 2023-06-06 07:33 | Outpatient (CLI) | payer MEDICARE, SELFPAY ==
--- NOTE | 2023-06-06 | DI.CT.S_ITS ---
PROCEDURE: CT CHEST ABD PEL W CON INDICATIONS: Elevated prostate specific antigen [PSA] TECHNIQUE: After the administration of oral and intravenous contrast, axial sections acquired from the supraclavicular neck to the pubic symphysis. Coronal and sagittal reformats were performed. For radiation dose reduction, the following was used: automated exposure control, adjustment of mA and/or kV according to patient size. COMPARISON: [facility], CT, CT CHEST ABD PEL W CON, 03/06/2020, 1:46. FINDINGS: Image quality: Excellent. CHEST: Lower Neck: No enlarged lymph nodes. Thyroid: Within normal limits. Axillae: No enlarged lymph nodes. Chest Wall: Unremarkable. Lungs and Airways: No consolidation or suspicious nodules. Pleura: No pneumothorax or pleural effusions. Heart: Heart size is normal. No pericardial effusion. Thoracic Vessels: The aorta and pulmonary arteries demonstrate normal size. Mediastinum and Maryana: No enlarged lymph nodes. Esophagus: No wall thickening. Small hiatal hernia. Oral contrast within the esophagus, either indicating reflux or esophageal dysmotility. ABDOMEN: Liver: No solid mass. Gallbladder: Cholelithiasis. No wall thickening. Biliary ducts: No biliary dilation. Pancreas: No ductal dilation. Spleen: Size is within normal limits. Adrenal Glands: No adrenal nodules. Kidneys and Ureters: No hydronephrosis. No solid mass. No complex renal cystic lesion which requires follow up. Stomach and Bowel: Normal colonic caliber, without significant wall thickening. Colonic diverticulosis without evidence of diverticulitis. Peritoneum: No abnormal intraperitoneal fluid. No free air. Ventral Wall: No hernia. Abdominal Nodes: No retroperitoneal or mesenteric adenopathy by size criteria. Vessels: Aorta and inferior vena cava are normal in size. PELVIS: Pelvic Organs: Prostate is atrophic, with fiducial markers present. Bladder: Unremarkable. Pelvic Nodes: Resolved pelvic adenopathy by size criteria. For instance: The 6 mm right external iliac chain node previously measured 28 mm (series 2, image 110). Miscellaneous: No inguinal hernias are seen. Bones: Extradural posterior to the T9/T10 disc space, causing moderate spinal canal narrowing (series 2, image 44 and series 5, image 48). IMPRESSION: 1. Resolved retroperitoneal adenopathy and pelvic adenopathy. Prominent residual right external iliac chain node has demonstrates significant interval decrease in size compared with prior. 2. Extradural lesion in the T9/T10 disc base, causing moderate spinal canal narrowing. Findings favor a disc protrusion over extradural mass. Consider evaluation with thoracic MRI with contrast. 3. No evidence of osseous metastatic disease. Dictated by: Alfred Thompson M.D. on 06/06/2023 at 9:52 Approved by: Alfred Thompson M.D. on 06/06/2023 at 9:59
--- NOTE | 2023-06-06 | DI.NM.S_ITS ---
PROCEDURE: PR BONE SCAN WHOLE BODY RADIOPHARMACEUTICAL: 22 mCi Tc-99m MDP IV. INDICATIONS: Elevated prostate specific antigen [PSA] TECHNIQUE: Delayed whole-body scintigrams were obtained approximately 3-4 hours after intravenous injection of radiotracer. Anterior and posterior views were acquired from vertex to feet. COMPARISON: [facility], CT, CT CHEST ABD PEL W CON, 06/06/2023, 9:29. [facility], [place], PR BONE SCAN WHOLE BODY, 05/04/2020, 12:38. FINDINGS: There are mild degenerative changes. No abnormal osteoblastic activity identified. Similar minimal focus of uptake at the right orbit. IMPRESSION: No suspicious uptake identified. There are mild degenerative changes. If there is high concern, consider PSMA PET. Approved by: Madi Mo M.D. on 06/06/2023 at 11:49
== END ==
PROVIDERS: Referring Provider Internal Medicine; Visit Provider Internal Medicine
DX: R97.20 Elevated prostate specific antigen [PSA] (principal); M48.8X4 Other specified spondylopathies, thoracic region
CPT/HCPCS: 71260; 74177; 78306; A9503; Q9967

== ENCOUNTER 2023-12-24 12:30 | Emergency (ER) | payer MEDICARE, SELFPAY ==
[2023-12-24 12:35] VITALS: BP 142/81; PULSE 80; RESP 16; TEMP 36.8; O2SAT 99; BMI 25.7
[2023-12-24 14:29] VITALS: BP 145/70; PULSE 80; O2SAT 98
--- NOTE | 2023-12-24 16:10 | ED.NEUROSD ---
HPI - Neuro Symptoms/Deficit General Chief Complaint: Neuro Symptoms/Deficit Stated Complaint: numbness entire body, swelling Time Seen by Provider: 12/24/23 16:01 Source: patient Mode of arrival: Ambulatory History of Present Illness HPI Narrative: Patient is a 63-year-old male with history of prostate cancer presenting today with bilateral numbness in both arms and legs. 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 However he has been unable to do so because he feels like his legs get swollen and he feels burning sensation in his legs and they get swollen. He reports that he has to get up and he can elevate and change position the swelling goes down but the numbness and burning sensation in the bottom move his feet remain. He also feels like his arms and hands are heavy. He is still able to play the piano he is good dexterity but just does not feel like his hands are quite like they used to be. He reports that he had imaging done here not that long ago which did show some sort of lesion in his back. He is he has not had any sort of loss of urine or stool no fever chills. On Anticoagulants: No Related Data Home Medications Medication Instructions Recorded Confirmed vitamin B complex 1 cap PO DAILY 10/31/21 11/20/22 Previous Rx's Medication Instructions Recorded Disabled Parking #1 ea 01/04/21 abiraterone 250 mg tablet (Zytiga) 250 mg PO DAILY #120 tabs 10/29/22 prednisone 5 mg tablet 5 mg PO BID chemotherapy #180 tabs 11/11/22 omeprazole 20 mg capsule,delayed 20 mg PO DAILY #90 caps 12/03/22 release lurasidone 80 mg tablet 80 mg PO QPM #90 tabs 12/23/22 amlodipine 10 mg tablet (Norvasc) 10 mg PO DAILY #60 tabs 02/20/23 tamsulosin 0.4 mg capsule 0.4 mg PO DAILY #90 caps 02/20/23 losartan 100 mg tablet 100 mg PO DAILY #10 tabs 02/26/23 hydroxyzine HCl 10 mg tablet 10 mg PO TID #90 tabs 07/15/23 lithium carbonate 300 mg capsule 900 mg (3 x 300 mg) PO DAILY #270 08/25/23 caps gabapentin 300 mg capsule 300 mg PO BEDTIME #30 caps 12/24/23 Allergies Allergy/AdvReac Type Severity Reaction Status Date / Time atenolol [From TENORMIN] AdvReac Unknown psychosis Verified 04/08/22 14:55 lithium AdvReac Unknown Verified 04/08/22 14:55 aerosol sprays Allergy Intermediate states Uncoded 04/08/22 14:55 that his lungs close up and he can't breathe perfume Allergy Intermediate states Uncoded 04/08/22 14:55 that his lungs close up and he can't breathe puppy breath Allergy Intermediate states Uncoded 04/08/22 14:55 that his lungs close up and he can't breathe Review of Systems Hematologic/Lymphatic On Anticoagulants: No Patient History Medical History Acute GI bleeding ADHD, hyperactive-impulsive type Arthritis Asthma Bipolar 1 disorder, mixed CLL (chronic lymphocytic leukemia) (~06/2020) Cognitive impairment Elevated PSA Essential hypertension Family history of prostate cancer Gastroesophageal reflux disease with hiatal hernia Generalized anxiety disorder HTN (hypertension) (~1989) Internal hemorrhoids Lower urinary tract symptoms (LUTS) Nightmares associated with chronic post-traumatic stress disorder Osteopenia Peripheral edema Prostate cancer metastatic to intrapelvic lymph node (~2019) PTSD (post-traumatic stress disorder) Family History Father Hypertension Cancer Brother Stroke Hypertension Sister Cancer Grandfather Rupture, aorta Social History marital status: household members: spouse and children occupational status: disabled Smoking Status: Former smoker alcohol intake: never substance use type: does not use Smoking Status: Former smoker tobacco type: cigarettes alcohol intake frequency: holidays/special occasions only Substance Use Type: does not use Exam Initial Vital Signs Initial Vital Signs: Vital Signs Temperature 98.3 F 12/24/23 12:35 Pulse Rate 80 12/24/23 12:35 Respiratory Rate 16 12/24/23 12:35 Blood Pressure 142/81 H 12/24/23 12:35 Pulse Oximetry 99 12/24/23 12:35 Oxygen Delivery Method Room Air 12/24/23 12:35 GENERAL: Alert sent 63-year-old male and in no acute distress. HEENT: Head atraumatic,EOMI, pupils reactive, face symmetric, moist mucous membranes CARDIOVASCULAR: Regular rate and rhythm without murmurs, rubs or gallops. RESPIRATORY: Breath sounds equal bilaterally, no wheezes rales or rhonchi. ABDOMEN: Soft, nontender. Normoactive bowel sounds all 4 quadrants. No guarding or rebound. EXTREMITIES: Normal range of motion, no clubbing or edema. Neurovascularly intact No edema present in lower extremity NEUROLOGICAL: Alert and oriented x4.Normal gait and speech. Cranial nerves II through XII grossly intact. Application Packaging Specialist strength equal bilaterally SKIN: Warm, dry, no laceration, no petechiae, no rashes or lesions. Course Orders Ordered: ED Orders 12/24/23 16:31 CT cervical spine wo con Stat CT lumbar spine wo con Stat CT thoracic spine wo con Stat Vital Signs Vital signs: Vital Signs - 8 hr 12/24/23 12:35 12/24/23 14:29 12/24/23 17:59 Temperature 98.3 F Pulse Rate 80 80 86 Respiratory Rate 16 16 Blood Pressure 142/81 H 145/70 H 122/68 Pulse Oximetry 99 98 97 Oxygen Delivery Method Room Air Room Air Room Air MDM - Neuro Symptoms/Deficit Lab Data Labs: Point of Care Testing Glucose POC [address] cervical: Radiologist's Impression: PROCEDURE: CT CERVICAL SPINE WO CON INDICATIONS: numbness bilaterally TECHNIQUE: Noncontrast 3 mm thick sections acquired from the skull base to the T4 level. Sagittal and coronal reformats were then constructed. For radiation dose reduction, the following was used: automated exposure control, adjustment of mA and/or kV according to patient size. COMPARISON: None. FINDINGS: Image quality: Excellent. Bones: No fractures or dislocations. Visualized superior ribs are intact. Cervical spondylosis is present. There are disc bulges at C3-C4 and C4-C5 as well as a posterior disc protrusion at C5-C6. There is at least mild canal stenosis at C3-C4 and canal stenosis is likely at least moderate at C5-C6. There are uncovertebral joint osteophytes present at C3-C4 and C4-C5. These results in bilateral bony foraminal narrowing. Soft tissues: Prevertebral soft tissues are normal in thickness. No paravertebral hematomas. No apical pneumothoraces. IMPRESSION: 1. No acute cervical fracture or dislocation. 2. Cervical spondylosis. Findings include multilevel canal stenosis and foraminal stenosis. There is a disc protrusion at C5-C6. Dictated by: Lico Quiroz M.D. on 12/24/2023 at 17:23 ct thoracic: Radiologist's Impression: PROCEDURE: CT THORACIC SPINE WO CON INDICATIONS: lesion T9/10 hx prostate cancer numbness in legs TECHNIQUE: Noncontrast 3 mm thick sections acquired through the region of interest in the thoracic spine. Sagittal and coronal reformats were then constructed. For radiation dose reduction, the following was used: automated exposure control. COMPARISON: None. FINDINGS: Image quality: Excellent. Bones: There is normal overall bony alignment. No acute vertebral body compression fractures. No suspicious sclerotic or lytic bony lesions. Central spinal canal is of normal overall caliber. Soft tissues: No paravertebral masses or hematomas. Visualized posteromedial lungs appear clear. IMPRESSION: 1. No evidence of bony metastatic disease in the thoracic spine. 2. No canal stenosis or foraminal stenosis noted. 3. No acute bony abnormality. No compression fractures. Dictated by: Lico Quiroz M.D. on 12/24/2023 at 17:27 CT lumbar: Radiologist's Impression: PROCEDURE: CT THORACIC SPINE WO CON INDICATIONS: lesion T9/10 hx prostate cancer numbness in legs TECHNIQUE: Noncontrast 3 mm thick sections acquired through the region of interest in the thoracic spine. Sagittal and coronal reformats were then constructed. For radiation dose reduction, the following was used: automated exposure control. COMPARISON: None. FINDINGS: Image quality: Excellent. Bones: There is normal overall bony alignment. No acute vertebral body compression fractures. No suspicious sclerotic or lytic bony lesions. Central spinal canal is of normal overall caliber. Soft tissues: No paravertebral masses or hematomas. Visualized posteromedial lungs appear clear. IMPRESSION: 1. No evidence of bony metastatic disease in the thoracic spine. 2. No canal stenosis or foraminal stenosis noted. 3. No acute bony abnormality. No compression fractures. Dictated by: Lico Quiroz M.D. on 12/24/2023 at 17:27 [facility] Narrative Medical decision making narrative: Patient is 63-year-old male history of prostate cancer presenting today with numbness and tingling in all extremities. He feels like his upper extremities for heavy and tight but he definitely has some burning sensation in his lower extremities. Pain is consistent with neuropathy. However unclear reason why he has neuropathy. POC glucose is 90 so no evidence of diabetes today. CT imaging of cervical spine thoracic and lumbar do show disc protrusion at C5 and C6 with multilevel canal stenosis and foraminal stenosis. Which would explain his upper extremity weakness. CT of lumbar spine does show disc bulging at L4-L5 with no significant canal stenosis and disc bulge at L5-S1 which could also explain his lower extremity numbness Offered gabapentin recommended outpatient MRI. No evidence of cauda equina symptoms Discharge Plan Departure Patient Disposition: Home Clinical Impression: Spinal stenosis, Cervical disc herniation, Lumbar disc herniation Instructions: Degenerative Disc Disease Activity Restrictions/Additional Instructions: *You have been diagnosed with degenerative disc disease *What to do: You do have multiple levels in your spine C5-C6 L4-L5 and L5-S1 showing some disc herniation which could be causing some burning sensation in your extremities. I do recommend outpatient MRI. *Continue to take medications as directed Gabapentin 300 mg at night to help with burning sensation and pain *Follow up with your primary care provider in 2-3 days or call [phone] *Return to ER if you should have increasing weakness loss of urine or stool or any new, worsening or concerning symptoms Prescriptions: New gabapentin 300 mg capsule 300 mg PO BEDTIME Qty: 30 0RF No Action lurasidone 80 mg tablet 80 mg PO QPM Qty: 90 3RF Rx Instructions: must administer with food (at least 350 calories) (DME) Disabled Parking See Rx Instructions .ROUTE .MEDSUPPLY Qty: 1 0RF Rx Instructions: Patient qualifies for disabled parking as per the attached form. omeprazole 20 mg capsule,delayed release(DR/EC) 20 mg PO DAILY Qty: 90 0RF Rx Instructions: APPT DUE WITH PCP PRIOR TO END OF SCRIPT/FUTURE FILLS. OVERDUE. PLEASE CALL TO SCHEDULE APPT 12/03/22. amlodipine [Norvasc] 10 mg tablet 10 mg PO DAILY Qty: 60 0RF Rx Instructions: APPT OVERDUE. PLEASE CALL TO SCHEDULE PAUL REVIEW/MED CHECK WITH DR. MARIE THANK YOU. 02/20/23 tamsulosin 0.4 mg capsule 0.4 mg PO DAILY Qty: 90 3RF Rx Instructions: PATIENT OVERDUE FOR APPT W/DR. MARIE. PLEASE CALL TO SCHEDULE APPT THANKS 02/20/23. losartan 100 mg tablet 100 mg PO DAILY Qty: 10 0RF Rx Instructions: APPT DUE WITH PCP PRIOR TO END OF SCRIPT/FUTURE FILLS. OVERDUE. PLEASE CALL TO SCHEDULE APPT 12/03/22. hydroxyzine HCl 10 mg tablet 10 mg PO TID Qty: 90 2RF lithium carbonate 300 mg capsule 900 mg PO DAILY Qty: 270 1RF vitamin B complex Capsule 1 cap PO DAILY abiraterone [Zytiga] 250 mg Tablet 250 mg PO DAILY Qty: 120 5RF Rx Instructions: take 4 tablets by mouth daily must be taken on empty stomach, at least 1 hr before or 2 hrs after a meal/food prednisone 5 mg tablet 5 mg PO BID Qty: 180 1RF Rx Instructions: Take 1 tablet by mouth twice daily Stand Alone Forms: Patient Portal/API
--- NOTE | 2023-12-24 16:31 | DI.CT.S_ITS ---
PROCEDURE: CT THORACIC SPINE WO CON INDICATIONS: lesion T9/10 hx prostate cancer numbness in legs TECHNIQUE: Noncontrast 3 mm thick sections acquired through the region of interest in the thoracic spine. Sagittal and coronal reformats were then constructed. For radiation dose reduction, the following was used: automated exposure control. COMPARISON: None. FINDINGS: Image quality: Excellent. Bones: There is normal overall bony alignment. No acute vertebral body compression fractures. No suspicious sclerotic or lytic bony lesions. Central spinal canal is of normal overall caliber. Soft tissues: No paravertebral masses or hematomas. Visualized posteromedial lungs appear clear. IMPRESSION: 1. No evidence of bony metastatic disease in the thoracic spine. 2. No canal stenosis or foraminal stenosis noted. 3. No acute bony abnormality. No compression fractures. Dictated by: Lico Quiroz M.D. on 12/24/2023 at 17:27 Approved by: Lico Quiroz M.D. on 12/24/2023 at 17:28
--- NOTE | 2023-12-24 16:31 | DI.CT.S_ITS ---
PROCEDURE: CT LUMBAR SPINE WO CON INDICATIONS: hx prostatc cancer numbness in legs TECHNIQUE: Noncontrast 3 mm thick sections acquired from the T12 level to the sacrum. Sagittal and coronal reformats were constructed. For radiation dose reduction, the following was used: automated exposure control. COMPARISON: [facility], CT, CT THORACIC SPINE WO CON, 12/24/2023, 16:43. FINDINGS: Image quality: Excellent. Bones: There is normal bony alignment. No acute vertebral body compression fractures. No suspicious lytic or blastic bony lesions. No pars defects. T12-L1: No canal stenosis or foraminal stenosis. L1-L2: No canal stenosis or foraminal stenosis. L2-L3: No canal stenosis or foraminal stenosis. L3-L4: Mild facet hypertrophy. No canal stenosis or foraminal stenosis. L4-L5: Disc bulge. Mild facet hypertrophy. No canal stenosis or foraminal stenosis. L5-S1: Disc bulge. Facet hypertrophy. No canal stenosis or foraminal stenosis. Soft tissues: No retroperitoneal masses or hematomas. Visualized aorta is normal in caliber. IMPRESSION: 1. No acute bony abnormality. 2. No lytic or blastic bony lesions. No evidence of metastatic disease. 3. Lower lumbar disc bulges and facet arthropathy. 4. No canal stenosis or foraminal stenosis. Dictated by: Lico Quiroz M.D. on 12/24/2023 at 17:28 Approved by: Lico Quiroz M.D. on 12/24/2023 at 17:30
--- NOTE | 2023-12-24 16:31 | DI.CT.S_ITS ---
PROCEDURE: CT CERVICAL SPINE WO CON INDICATIONS: numbness bilaterally TECHNIQUE: Noncontrast 3 mm thick sections acquired from the skull base to the T4 level. Sagittal and coronal reformats were then constructed. For radiation dose reduction, the following was used: automated exposure control, adjustment of mA and/or kV according to patient size. COMPARISON: None. FINDINGS: Image quality: Excellent. Bones: No fractures or dislocations. Visualized superior ribs are intact. Cervical spondylosis is present. There are disc bulges at C3-C4 and C4-C5 as well as a posterior disc protrusion at C5-C6. There is at least mild canal stenosis at C3-C4 and canal stenosis is likely at least moderate at C5-C6. There are uncovertebral joint osteophytes present at C3-C4 and C4-C5. These results in bilateral bony foraminal narrowing. Soft tissues: Prevertebral soft tissues are normal in thickness. No paravertebral hematomas. No apical pneumothoraces. IMPRESSION: 1. No acute cervical fracture or dislocation. 2. Cervical spondylosis. Findings include multilevel canal stenosis and foraminal stenosis. There is a disc protrusion at C5-C6. Dictated by: Lico Quiroz M.D. on 12/24/2023 at 17:23 Approved by: Lico Quiroz M.D. on 12/24/2023 at 17:26
[2023-12-24 17:59] VITALS: BP 122/68; PULSE 86; RESP 16; O2SAT 97
== END 2023-12-24 17:59 | disposition home or self-care (01) ==
PROVIDERS: Emergency Provider Emergency Medicine
DX: M51.26 Other intervertebral disc displacement, lumbar region (principal); M50.20 Other cervical disc displacement, unspecified cervical region; M48.00 Spinal stenosis, site unspecified; Z79.899 Other long term (current) drug therapy
CPT/HCPCS: 72125; 72128; 72131; 82962; 99283; 99284

== ENCOUNTER → 2024-03-02 11:15 | Outpatient (CLI) | payer MEDICARE, SELFPAY ==
--- NOTE | 2024-03-02 | DI.MRI.S_ITS ---
PROCEDURE: MR CERVICAL SPINE WO CON INDICATIONS: Radiculopathy, cervical region. Neuropathy. Prior history of leukemia and prostate carcinoma. TECHNIQUE: Noncontrast sagittal T1 spin echo and T2 fast spin echo, sagittal STIR, foraminal oblique sagittal T2 fast spin echo, and axial gradient echo or T2 fast spin echo through the cervical spine. COMPARISON: [facility], CT, CT CERVICAL SPINE WO CON, 12/24/2023, 16:43. FINDINGS: Image quality: Excellent. Alignment and Curvature: There is accentuated lordotic bony alignment centered at the low cervical spine, as was also the case on comparison CT 12/24/23. Bone Marrow: Marrow demonstrates normal overall signal. No evidence of metastatic disease. Spinal Cord: Visualized spinal cord has normal size and signal. No cerebellar tonsillar herniation. Paraspinous Soft Tissues: No paravertebral masses. Prevertebral soft tissues are normal in thickness. C2-C3: Normal appearance. C3-C4: Mild degenerative disc height reduction and disc desiccation, no disc bulge or herniation. No significant spinal or foraminal stenosis. C4-C5: Mild degenerative disc height reduction and desiccation. Axial imaging shows asymmetric facet and uncovertebral osteoarthritic change on the right with secondary neural foraminal stenosis and significant impingement on the adjacent nerve root at the foramen. C5-C6: Moderate degenerative disc height reduction and desiccation, and there is a broad-based posterior transverse chronic appearing disc bulge. Additionally, facet and on go vertebral degenerative change produces symmetric bilateral moderate foraminal stenosis impinging on the crossing nerve roots bilaterally. Anterior spinal stenosis is present due to the disc bulge, right greater. C6-C7: Normal appearance. C7-T1: Normal appearance. IMPRESSION: Overall there is a relatively mild degree of spinal stenosis but both symmetric and asymmetric significant foraminal stenosis is present as discussed in detail by level in the body of the report above. Secondary nerve root impingement would be expected as described. No evidence for underlying neoplasm as cause of current symptomatology. No recent trauma found. Dictated by: Rigoberto Davalos M.D. on 03/04/2024 at 12:53 Approved by: Rigoberto Davalos M.D. on 03/04/2024 at 13:01
== END ==
LOC: MRI 11:16
PROVIDERS: PCP Nurse Practitioner Family; Referring Provider Family Medicine; Visit Provider Family Medicine
DX: M54.12 Radiculopathy, cervical region (principal); M48.02 Spinal stenosis, cervical region
CPT/HCPCS: 72141

== ENCOUNTER → 2024-08-16 11:07 | Outpatient (CLI) | payer MEDICARE, SELFPAY ==
--- NOTE | 2024-08-16 11:09 | DI.NM.S_ITS ---
PROCEDURE: PA BONE SCAN WHOLE BODY RADIOPHARMACEUTICAL: 20.6 mCi Tc-99m MDP IV. INDICATIONS: PROSTATE CANCER METS TO INTRAPELVIC LYM TECHNIQUE: Delayed whole-body scintigrams were obtained approximately 3-4 hours after intravenous injection of radiotracer. Anterior and posterior views were acquired from vertex to feet. COMPARISON: [place], [place], PA BONE SCAN WHOLE BODY, 06/06/2023, 9:14. FINDINGS: Urinary excretion of radiotracer is identified in the kidneys and bladder. Upper and lower extremity degenerative changes are present. No suspicious focal radiotracer uptake identified. IMPRESSION: No suspicious focal radiotracer uptake on bone scan. Upper and lower extremity degenerative changes are present. Moderately distended bladder partially obscures the pelvis. Dictated by: Madi Mo M.D. on 08/16/2024 at 16:11 Approved by: Madi Mo M.D. on 08/16/2024 at 16:13
== END ==
PROVIDERS: PCP Nurse Practitioner Family; Referring Provider Internal Medicine Medical Oncology; Visit Provider Internal Medicine Medical Oncology
DX: C61 Malignant neoplasm of prostate (principal); C77.5 Secondary and unspecified malignant neoplasm of intrapelvic lymph nodes; N32.89 Other specified disorders of bladder
CPT/HCPCS: 78306; A9503

== ENCOUNTER → 2025-05-25 12:58 | Outpatient (CLI) | payer MEDICARE, SELFPAY ==
--- NOTE | 2025-05-25 | DI.RAD.S_ITS ---
PROCEDURE: FL BARIUM SWALLOW INDICATIONS: gastroesophageal reflux disease COMPARISON: None. FINDINGS: Function: Mild esophageal dysmotility with tertiary contractions involving the lower 1/3 of the esophagus.. Moderate elicited gastroesophageal reflux. There is normal transit of a calibrated barium tablet through the esophagus into the stomach. Morphology: Air-contrast images demonstrate normal mucosal morphology. Single contrast views show no esophageal strictures, extrinsic mass effects, or diverticula. Limited images of the stomach demonstrate normal appearance. Moderate reducible hiatal hernia. IMPRESSION: 1. Moderate reducible hiatal hernia and spontaneous gastroesophageal reflux. 2. Mild esophageal dysmotility. Dictated by: Moom ADAME Interpreted: Alfred Thompson MD on 06/29/2025 at 16:45 Transcribed by: YNES on 06/29/2025 at 16:45 Approved by: Galileo Fritz M.D. on 06/30/2025 at 16:09
== END ==
PROVIDERS: PCP Nurse Practitioner Family; Referring Provider Nurse Practitioner Family; Visit Provider Surgery
DX: K21.9 Gastro-esophageal reflux disease without esophagitis (principal); K22.4 Dyskinesia of esophagus; K44.9 Diaphragmatic hernia without obstruction or gangrene
CPT/HCPCS: 74220

== ENCOUNTER 2025-07-05 19:24 | Emergency (ER) | payer MEDICARE, SELFPAY ==
[2025-07-05] VITALS (10 sets, daily range): BP systolic 133–156; BP diastolic 66–72; PULSE 55–68; RESP 17–18; TEMP 36.9; O2SAT 94–97; BMI 27.1
[2025-07-05 20:15] LABS: Add Manual Diff / Slide Review NO; Hematocrit 34.2 % (41-53); Hemoglobin 11.4 g/dL (13.5-17.5); Lymphocytes Absolute Auto 3600 /uL (1100-4500); Mean Corpuscular HGB Conc 33.4 % (30-36); Mean Corpuscular Hemoglobin 28.8 PG (26-34); Mean Corpuscular Volume 86.2 fL (80-100); Platelet Count 213 X10^3/uL (150-400)
--- NOTE | 2025-07-05 20:19 | DI.CT.S_ITS ---
PROCEDURE: CT ABDOMEN PELVIS W CON INDICATIONS: abd pain TECHNIQUE: After the administration of intravenous contrast, axial sections acquired from the lung bases to the pubic symphysis. Coronal and sagittal reformats were performed. For radiation dose reduction, the following was used: automated exposure control, adjustment of mA and/or kV according to patient size. COMPARISON: [facility], CT, CT CHEST ABD PEL W CON, 06/06/2023, 9:29. FINDINGS: Image quality: Diagnostic Lower chest: Mild basal atelectasis. Cardiomegaly. Mild nonspecific distal esophageal wall thickening, and surrounding edema. Postsurgical changes. Liver: Unremarkable Gallbladder and biliary system: Cholelithiasis. Nondilated. Pancreas: No ductal dilation Spleen: Nonenlarged Adrenals: No discrete nodules on the right. Similar tiny nodule in the left lateral limb Kidneys: No solid renal mass or hydronephrosis. Vessels and lymph nodes: The main portal vein is patent. No abdominal aortic aneurysm. Mild aortoiliac atherosclerotic calcifications. Similar prominent right external iliac lymph nodes compared to 2022 imaging. No lymphadenopathy by size criteria. Bowel and peritoneum: Mild edema and wall thickening at the GE junction. Small duodenal diverticulum. No bowel obstruction. No drainable abscess or ascites. Colonic diverticula are present. No acute appearing diverticular inflammation is seen. Non dilated appendix Body wall: Scarring and thickening around the umbilicus, likely representing postsurgical changes. Pelvis: Under distended urinary bladder. Prostate post treatment changes, not well assessed on CT Bones: No aggressive abnormality. Diffuse degenerative osseous changes. IMPRESSION: Nonspecific edema and wall thickening around the distal esophagus and GE junction with postsurgical changes. Consider endoscopy correlation if clinically necessary. No significant extraluminal fluid. No bowel obstruction. Other findings above, likely nonacute/incidental Dictated by: Madi Mo M.D. on 07/05/2025 at 21:18 Approved by: Madi Mo M.D. on 07/05/2025 at 21:23
[2025-07-05 20:25] LABS: Alanine Aminotransferase 20 IU/L (<50); Albumin 3.9 g/dL (3.5-5.0); Blood Urea Nitrogen 13 mg/dL (9-20); Carbon Dioxide 18 mmol/L (22-32); Chloride 114 mmol/L (98-107); HEMOLYSIS < 15 (0-50)
[2025-07-05 20:32] LABS: Albumin Globulin Ratio 1.3 (1.0-2.8); Alkaline Phosphatase 119 U/L (38-126); Calcium 8.8 mg/dL (8.4-10.2); Estimated Glomerular Filt Rate > 60 mL/min (>60); Globulin 2.9 g/dL (1.7-4.1); Glucose 104 mg/dL (70-99); Lipase 120 U/L (23-300); Potassium 3.6 mmol/L (3.4-5.1); Sodium 140 mmol/L (137-145); Total Protein 6.8 g/dL (6.3-8.2)
[2025-07-05] MEDS: LACTATED RINGERS 1,000 ML 1000 ML IV (20:33)
--- NOTE | 2025-07-05 21:48 | ED_ITS ---
HPI - Abdominal Pain General Chief Complaint: Abdominal Pain Stated Complaint: Epigastric pain, hernia sx 5wks ago Time Seen by Provider: 07/05/25 19:32 Source: patient and EMS Mode of arrival: EMS History of Present Illness HPI narrative: 63-year-old male history of prostate cancer and bipolar presents with periumbilical pain radiating up to the throat for the past 2 days lasting approximately 30 minutes. Of note he recently had hiatal hernia surgery 5 weeks ago and had his follow up last week with no acute issues. He did have a bowel movement earlier today. Denies any chest pain, shortness of breath, back pain, urinary complaints, numbness, tingling, down the legs, shortness of breath, dyspnea on exertion. Other than what is stated 14 point review of system is negative. Related Data Home Medications ?Medication ?Instructions ?Recorded ?Confirmed vitamin B complex 1 cap PO DAILY 10/31/2111/11 Previous Rx's ?Medication ?Instructions ?Recorded Disabled Parking #1 ea 01/04/21 abiraterone 250 mg tablet (Zytiga) 250 mg PO DAILY #12 0 tabs 10/29/22 prednisone 5 mg tablet 5 mg PO BID chemotherapy #18 0 tabs 11/11/22 omeprazole 20 mg capsule,delayed 20 mg PO DAILY #90 ca ps 12/03/22 release lurasidone 80 mg tablet 80 mg PO QPM #90 tabs amlodipine 10 mg tablet (Norvasc) 10 mg PO DAILY #60 t abs 02/20/23 tamsulosin 0.4 mg capsule 0.4 mg PO DAILY #90 caps 05/05 losartan 100 mg tablet 100 mg PO DAILY #10 tabs hydroxyzine HCl 10 mg tablet 10 mg PO TID #90 tabs 09/06 gabapentin 300 mg capsule 300 mg PO BEDTIME #30 caps 0 12/24/23 lithium carbonate 300 mg capsule 900 mg (3 x 300 mg) P O DAILY #90 02/19/24 caps Allergies Allergy/AdvReac Type Severity Reaction Status Date / Time atenolol (From TENORMIN) AdvReac Unknown psychosis Verified 04/08/22 14:55 lithium AdvReac Unknown Verified 04/08/22 14:55 aerosol sprays Allergy Intermediate states Uncoded 04/08/22 14:55 that his lungs close up and he can't breathe perfume Allergy Intermediate states Uncoded 04/08/22 14:55 that his lungs close up and he can't breathe puppy breath Allergy Intermediate states Uncoded 04/08/22 14:55 that his lungs close up and he can't breathe Review of Systems Review of Systems ROS Unobtainable: All systems reviewed & are unremarkable except as noted in HPI and below Patient History Medical History Acute GI bleeding ADHD, hyperactive-impulsive type Arthritis Asthma Bipolar 1 disorder, mixed CLL (chronic lymphocytic leukemia) (~06/2020) Cognitive impairment Elevated PSA Essential hypertension Family history of prostate cancer Gastroesophageal reflux disease with hiatal hernia Generalized anxiety disorder HTN (hypertension) (~1989) Internal hemorrhoids Lower urinary tract symptoms (LUTS) Nightmares associated with chronic post-traumatic stress disorder Osteopenia Peripheral edema Prostate cancer metastatic to intrapelvic lymph node (~2019) PTSD (post-traumatic stress disorder) Family History Father Hypertension Cancer Brother Stroke Hypertension Sister Cancer Grandfather Rupture, aorta Social History marital status: household members: spouse and children occupational status: disabled alcohol intake: never substance use type: does not use tobacco type: cigarettes alcohol intake frequency: holidays/special occasions only Exam Narrative Exam Narrative: GENERAL: [64 year old patient appears stated age. Well-developed patient, in mild distress. HEAD: Atraumatic. Normocephalic. EYES: Pupils equal round and reactive. Extraocular motions intact. No scleral icterus. No injection or drainage. NECK: Trachea midline. Non tender GASTROINTESTINAL: Abdomen soft, non-tender, nondistended. EXTREMITIES: No edema or joint tenderness. BACK: Nontender without deformity or crepitance. No flank tenderness. NEURO: AOx3. SKIN: No rash or erythema of visible areas Initial Vital Signs Initial Vital Signs: Vital Signs Temperature 98.4 F 07/05/25 19:54 Pulse Rate 55 L 07/05/25 19:54 Respiratory Rate 18 07/05/25 19:54 Blood Pressure 156/72 H 07/05/25 19:54 Pulse Oximetry 96 07/05/25 19:54 Oxygen Delivery Method Room Air 07/05/25 19:54 Course Orders Ordered: ED Orders 07/05/25 20:01 EKG-12 Lead Stat 07/05/25 20:06 Complete Blood Count AUTO DIFF Stat Comprehensive Metabolic Panel Stat Lipase Stat 07/05/25 20:19 CT abdomen pelvis w con Stat Ondansetron HCl (Ondansetron 4 Mg/2 Ml Inj) 4 mg IV NOW PRN PRN Reason: Nausea And Vomiting Ondansetron HCl (Ondansetron 4 Mg Odt) 4 mg PO NOW PRN PRN Reason: Nausea And Vomiting Discontinued Medications Lactated Ringer's (Lactated Ringers) 1,000 mls @ 1,000 mls/hr IV BOLUS ONE Stop: 07/05/25 21:19 Last Infusion: 07/05/25 21:37 Dose: Infused Documented By: Admin: 07/05/25 20:33 Dose: 1,000 mls/hr Documented By: KRISTIE Ketorolac Tromethamine (Ketorolac 30 Mg/Ml Vial) 15 mg IV NOW ONE Stop: 07/05/25 20:21 Vital Signs Vital signs: Vital Signs - 8 hr 07/05/25 19:54 Temperature 98.4 F Pulse Rate 55 L Respiratory Rate 18 Blood Pressure 156/72 H Pulse Oximetry 96 Oxygen Delivery Method Room Air MDM - Abdominal Pain Lab Data 07/05/25 20:06 07/05/25 20:06 Labs: Lab Results 07/05/25 Range/Units 20:06 WBC 7.4 (4.5-11.0) X10^3/uL RBC 3.97 L (4.5-5.9) X10^6/uL Hgb 11.4 L (13.5-17.5) g/dL Hct 34.2 L (41-53) % MCV 86.2 (80-100) fL MCH 28.8 (26-34) PG MCHC 33.4 (30-36) % RDW 14.2 (11.6-14.8) % Plt Count 213 (150-400) X10^3/uL Neut % (Auto) 40.8 L (50-75) % Lymph % (Auto) 48.3 H (25-40) % [place] % (Auto) 5.9 (3-14) % Eos % (Auto) 4.5 H (2-4) % Baso % (Auto) 0.5 (0-2) % Neut # (Auto) 3000 (2854-5397) /uL Lymph # (Auto) 3600 (5989-6181) /uL [place] # (Auto) 400 (0-900) /uL Eos # (Auto) 300 (0-450) /uL Baso # (Auto) 0 (0-100) /uL Sodium 140 (137-145) mmol/L Potassium 3.6 (3.4-5.1) mmol/L Chloride 114 H (98-107) mmol/L Carbon Dioxide 18 L (22-32) mmol/L BUN 13 (9-20) mg/dL Creatinine 0.95 (0.66-1.25) mg/dL Estimated GFR > 60 (>60) mL/min BUN/Creatinine Ratio 13.7 (6-22) Glucose 104 H (70-99) mg/dL Calcium 8.8 (8.4-10.2) mg/dL Total Bilirubin 0.2 (0.2-1.3) mg/dL AST 26 (17-59) IU/L ALT 20 (<50) IU/L Alkaline Phosphatase 119 (38-126) U/L Total Protein 6.8 (6.3-8.2) g/dL Albumin 3.9 (3.5-5.0) g/dL Globulin 2.9 (1.7-4.1) g/dL Albumin/Globulin Ratio 1.3 (1.0-2.8) Lipase 120 (23-300) U/L Point of care testing: Urine Dip Bedside Urine Glucose Negative Bedside Urine Bilirubin - Negative Bedside Urine Ketone - Negative Urine Specific Harris 1.010 Bedside Urine Occult Blood - Negative Bedside Urine pH 6 Bedside Urine Protein - Negative Bedside Urine Urobilinogen - Negative Bedside Urine Nitrite - Negative Bedside Urine Leukocytes - Negative Esterase Imaging Data CT scan - abdomen/pelvis: Radiologist's Impression: [address] [address] [address] Scan Report Signed Patient: Vladimir Munson MR#: [id number] : 1960 Acct:[id number] Age/Sex: 64 / M Date of Service: 07/05/25 Loc: ED Accession Number: [id number] Procedure: CT abdomen pelvis w con Ordering Provider: David Dalton D.O. PROCEDURE: CT ABDOMEN PELVIS W CON INDICATIONS: abd pain TECHNIQUE: After the administration of intravenous contrast, axial sections acquired from the lung bases to the pubic symphysis. Coronal and sagittal reformats were performed. For radiation dose reduction, the following was used: automated exposure control, adjustment of mA and/or kV according to patient size. COMPARISON: [facility], CT, CT CHEST ABD PEL W CON, 06/06/2023, 9:29. FINDINGS: Image quality: Diagnostic Lower chest: Mild basal atelectasis. Cardiomegaly. Mild nonspecific distal esophageal wall thickening, and surrounding edema. Postsurgical changes. Liver: Unremarkable Gallbladder and biliary system: Cholelithiasis. Nondilated. Pancreas: No ductal dilation Spleen: Nonenlarged Adrenals: No discrete nodules on the right. Similar tiny nodule in the left lateral limb Kidneys: No solid renal mass or hydronephrosis. Vessels and lymph nodes: The main portal vein is patent. No abdominal aortic aneurysm. Mild aortoiliac atherosclerotic calcifications. Similar prominent right external iliac lymph nodes compared to 2022 imaging. No lymphadenopathy by size criteria. Bowel and peritoneum: Mild edema and wall thickening at the GE junction. Small duodenal diverticulum. No bowel obstruction. No drainable abscess or ascites. Colonic diverticula are present. No acute appearing diverticular inflammation is seen. Non dilated appendix Body wall: Scarring and thickening around the umbilicus, likely representing postsurgical changes. Pelvis: Under distended urinary bladder. Prostate post treatment changes, not well assessed on CT Bones: No aggressive abnormality. Diffuse degenerative osseous changes. IMPRESSION: Nonspecific edema and wall thickening around the distal esophagus and GE junction with postsurgical changes. Consider endoscopy correlation if clinically necessary. No significant extraluminal fluid. No bowel obstruction. Other findings above, likely nonacute/incidental Dictated by: Madi Mo M.D. on 07/05/2025 at 21:18 Approved by: Madi Mo M.D. on 07/05/2025 at 21:23 [facility] Narrative Medical decision making narrative: All lab work vital signs nurse triage note medication list previous ER visits in all imaging studies reviewed. CT scan shows Nonspecific edema and wall thickening around the distal esophagus and GE junction with postsurgical changes. Consider endoscopy correlation if clinically necessary.No significant extraluminal fluid. No bowel obstruction. Other findings above, likely nonacute/incidental. 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 Discharge Plan Departure Patient Disposition: Home Clinical Impression: Abdominal pain Instructions: DI for Abdominal Pain-Adult Activity Restrictions/Additional Instructions: Return with new or worsening symptoms. Follow up Dr. Harley call office after July 08. Restart on acid reflux medicine. Clear liquid diet until seen by . Prescriptions: No Action lurasidone 80 mg tablet 80 mg PO QPM Qty: 90 3RF Rx Instructions: must administer with food (at least 350 calories) (DME) Disabled Parking See Rx Instructions .ROUTE .MEDSUPPLY Qty: 1 0RF Rx Instructions: Patient qualifies for disabled parking as per the attached form. omeprazole 20 mg capsule,delayed release(DR/EC) 20 mg PO DAILY Qty: 90 0RF Rx Instructions: APPT DUE WITH PCP PRIOR TO END OF SCRIPT/FUTURE FILLS. OVERDUE. PLEASE CALL TO SCHEDULE APPT 12/03/22. amlodipine [Norvasc] 10 mg tablet 10 mg PO DAILY Qty: 60 0RF Rx Instructions: APPT OVERDUE. PLEASE CALL TO SCHEDULE PAUL REVIEW/MED CHECK WITH DR. MARIE THANK YOU. 02/20/23 tamsulosin 0.4 mg capsule 0.4 mg PO DAILY Qty: 90 3RF Rx Instructions: PATIENT OVERDUE FOR APPT W/DR. MARIE. PLEASE CALL TO SCHEDULE APPT THANKS 02/20/23. losartan 100 mg tablet 100 mg PO DAILY Qty: 10 0RF Rx Instructions: APPT DUE WITH PCP PRIOR TO END OF SCRIPT/FUTURE FILLS. OVERDUE. PLEASE CALL TO SCHEDULE APPT 12/03/22. hydroxyzine HCl 10 mg tablet 10 mg PO TID Qty: 90 2RF lithium carbonate 300 mg capsule 900 mg PO DAILY Qty: 90 0RF vitamin B complex Capsule 1 cap PO DAILY abiraterone [Zytiga] 250 mg Tablet 250 mg PO DAILY Qty: 120 5RF Rx Instructions: take 4 tablets by mouth daily must be taken on empty stomach, at least 1 hr before or 2 hrs after a meal/food prednisone 5 mg tablet 5 mg PO BID Qty: 180 1RF Rx Instructions: Take 1 tablet by mouth twice daily gabapentin 300 mg capsule 300 mg PO BEDTIME Qty: 30 0RF Referrals: Yolanda Small ARNP [Primary Care Provider, Nursing] Stand Alone Forms: Patient Portal/API
[2025-07-05] MEDS: KETOROLAC 30 MG/ML VIAL 15 MG IV (22:35)
== END 2025-07-05 22:50 | disposition home or self-care (01) ==
PROVIDERS: Emergency Provider Family Medicine; PCP Nurse Practitioner Family
DX: R10.13 Epigastric pain (principal); R10.33 Periumbilical pain; I10 Essential (primary) hypertension
CPT/HCPCS: 36415; 74177; 80053; 81003; 83690; 85025; 96361; 96374; 99284; J1885; J7120; Q9967